=== PATIENT | female | born 1985 | race Caucasian/White ===

== ENCOUNTER 2018-05-21 17:06 | Inpatient (IN) | payer OTHER ==
[2018-05-21 19:39] LABS: CKMB 10.5 ng/mL (0-6.6)
--- NOTE | 2018-05-21 20:32 | ULT ---
TRANSABDOMINAL PELVIC ULTRASOUND: 05/21/18 PROVIDED CLINICAL HISTORY: Left lower quadrant pain. FINDINGS: Evaluation is limited by patient body habitus. The uterus measures approximately 12.7 x 3.0 x 6.2 cm. The myometrium and endometrium are not sufficiently visualized for comment. Neither ovary is seen. M inimal free intraperitoneal fluid may be present. Bladder appears sonographically normal. IMPRESSION: Limited study. POS: CHAN
[2018-05-21] MEDS ORDERED: Ondansetron PF 4 MG/2 ML Vial IVP PRN ×2 (21:06→21:29)
[2018-05-21] MEDS ORDERED: Ondansetron ODT 4 MG TAB SL PRN (21:06)
[2018-05-21] MEDS ORDERED: Acetaminophen 325 MG TAB PO PRN (21:06)
[2018-05-21] MEDS ORDERED: Ondansetron ODT 4 MG TAB PO PRN (21:29)
[2018-05-21] MEDS ORDERED: hydrALAZINE 20 MG/ML VIAL SLOW IVP PRN (21:29)
[2018-05-21] MEDS ORDERED: Famotidine 20 MG TAB PO SCH ×2 (21:29→21:45)
--- NOTE | 2018-05-21 21:40 | NM ---
VQ SCAN 05/21/18 PROVIDED CLINICAL HISTORY: Pain. FINDINGS: 8 millicuries Xenon 133 inhalational. 6 millicuries technetium 99m labeled MAA, IV. FINDINGS: There is normal distribution of radiotracer throughout both lungs on both the ventilation and perfusi on scans. Prominent central thoracic photopenia related to marked cardiomegaly. IMPRESSION: No scintigraphic evidence for pulmonary embolus. POS: GENIH
[2018-05-21] MEDS ORDERED: Enoxaparin Sodium 30 MG/0.3 ML SYRINGE SC SCH (21:45)
[2018-05-21] MEDS ORDERED: Aspirin 325 mg Enteric Coated Tablet PO SCH (21:45)
[2018-05-21] MEDS: Acetaminophen 500 MG TAB PO PRN (21:53)
[2018-05-21 22:20] LABS: Lactic Acid 1.7 mmol/L (0.5-2.2)
[2018-05-21 22:31] LABS: Critical Call Chem Troponin I RESULT DECREASING; Troponin I 14.503 ng/mL (< 0.028)
[2018-05-22] MEDS: Acetaminophen 500 MG TAB PO PRN ×3 (02:38→19:45)
--- NOTE | 2018-05-22 03:00 | HP ---
PRIMARY CARE PROVIDER: CHIEF COMPLAINT: Chest and abdominal pain and shortness of breath. HISTORY OF PRESENT ILLNESS: This is a 32-year-old female, who presented to [facility] Emergency Department complaining of abdominal and chest pain as well as shortness of breath over the last week. The patient denied any specific documented fever, chills, or trauma. The patient did state she had associated swelling of her lower extremities that appeared symmetrical with worsening shortness of breath with activity or ambulation. The patient denies any history of cardiac or lung problems and states she has had no history of asthma. The patient denied any recent immunizations or travel history. The patient denies taking any specific home medications and states her only surgery was a section approximately 4 years prior to this evaluation. The patient denies taking any hormonal replacement therapy or control pills. The patient initially noted pain in the left lower quadrant of her abdomen which is cramping, radiating to the flank region, intermittently severe, requiring her to bend forward to help relieve her symptoms. The patient admits to several bowel movements in the last several days, which were firm, but not diarrhea. The patient denied any hematemesis, hematochezia, or change to her diet. The patient also admitted to increased shortness of breath and chest pain in the last week intermittently, initially becoming more frequent and recurrent in the last 24 hours. The patient denies any family members with similar symptoms and states her underwent recent gallbladder surgery. She also relates she has been under stress related to her surgery in the last week. In the emergency room, the patient underwent extensive evaluation after screening. Laboratory data reveal a multitude of abnormalities including troponin I of 18 with a TSH of 13.26 and elevated BNP of 3071. The patient received multiple medications including Lovenox, aspirin, Lasix, Synthroid, nitroglycerin paste, Zofran, and lisinopril. The patient also received labetalol IV push after tachycardia was noted on telemetry monitoring. The patient states her abdominal pain has improved, but still remain short of breath. PAST MEDICAL HISTORY: Ovarian cysts. PAST SURGICAL HISTORY: Status post section in 2013. CURRENT MEDICATIONS: Reviewed and negative. ALLERGIES: CODEINE AND LATEX. FAMILY HISTORY: Mother with history of CHF. SOCIAL HISTORY: The patient is , accompanied by her and son in the hospital. No current alcohol, tobacco, or illicit drug use. Functional of all activities of daily living. REVIEW OF SYSTEMS: CONSTITUTIONAL: Negative for weight loss or gain, ability to conduct usual activities. SKIN: Negative for rash, itching. EYES: Negative for double vision, pain. ENT/MOUTH: Negative for nose bleeding, neck stiffness, pain, tenderness. CARDIOVASCULAR: Negative for palpitations, dyspnea on exertion, orthopnea. RESPIRATORY: Negative for shortness of breath, wheezing, cough, hemoptysis, fever or night sweats. GASTROINTESTINAL: Negative for poor appetite, abdominal pain, heartburn, nausea, vomiting, constipation, or diarrhea. GENITOURINARY: Negative for urgency, frequency, dysuria, nocturia. MUSCULOSKELETAL: Negative for pain, swelling. NEUROLOGIC/PSYCHIATRIC: Negative for anxiety, depression. ALLERGY/IMMUNOLOGIC: Negative for skin rash, bleeding tendency. Otherwise negative except as stated per HPI. PHYSICAL EXAMINATION: VITAL SIGNS: On admission; blood pressure 191/146, pulse 121, respiratory rate 22, temperature 97.9 degrees Fahrenheit, O2 saturation 96% on 2 L/min by nasal cannula. GENERAL APPEARANCE: This is a 32-year-old female, alert and oriented x3, pleasant, in avnh-kd-aeurtihs distress. HEENT: Pupils are equal, round, and reactive to light and accommodation. Extraocular muscles are intact. No scleral icterus. No conjunctival injection. Nares patent. OP is clear. Teeth in fair repair. NECK: Supple. No cervical adenopathy. No thyromegaly. No carotid bruits. No JVD appreciated. Cervical spinal with full active and passive range of motion. No meningeal signs appreciated. CHEST: Lungs with diminished breath sounds in the bases bilaterally. Occasional coarse breath sounds noted. CARDIOVASCULAR: S1 and S2 with distant heart sounds. No murmur, rub, or gallop appreciated. ABDOMEN: Obese with landmarks difficult to palpate due to patient's body habitus. No rebound or guarding noted. No CVA tenderness appreciated. EXTREMITIES: Warm and dry with fair turgor. Pitting edema to the proximal shins bilaterally. Pulses are palpable distally at the dorsalis pedis, posterior tibial, and popliteal arteries bilaterally. Capillary refill less than 2 seconds. NEUROLOGIC: Cranial nerves 2 through 12 are grossly intact. No focal or lateralizing signs appreciated. PERTINENT LAB AND X-RAY FINDINGS: Sodium 140, potassium 3.6, chloride 100, CO2 of 26, BUN 19, creatinine 1.03, estimated GFR 61, glucose 125, calcium 9.0, total bilirubin 1.5, AST 64, ALT of 46, alkaline phosphatase 56. Troponin I ranged between 15.5 to 18.1. BNP 3071. Lipase 124. TSH 13.25. CBC showed white blood cell count of 10.1, hemoglobin 12, hematocrit 38, MCV 73, platelet count 339 with 76% neutrophils. Urinalysis showed positive protein, trace blood, small bilirubin, 4 to [address] of the abdomen and pelvis showed mild ascites in the perihepatic region, calcified density anterior to the uterus noted, pericardial effusion noted. Pelvic ultrasound dated 05/21/2018, showed indistinct ovaries, limited study. Portable chest x-ray dated 05/21/2018, showed marked cardiomegaly with vascular prominence. EKG dated 05/21/2018, by my interpretation shows sinus tachycardia with heart rates in the 110s. Attenuated R-waves noted in the precordial leads. Left axis deviation. No acute ST-T wave changes appreciated. ASSESSMENT AND PLAN: 1. Acute dyspnea, etiology unclear. Concern for pulmonary embolus as the patient has not been ruled out completely. We will obtain V/Q scan as the patient underwent CT imaging of the abdomen and pelvis with contrast in less than 24 hours. Continue Lovenox 130 mg subcutaneously q.12 hours, pending complete rule out. Check lower extremity venous Doppler studies to rule out deep vein thrombosis. 2. Chest pain, multifactorial including potential for non-ST elevation myocardial infarction given patient's elevated troponin I. We will continue to trend troponin I. Continue aspirin 325 mg daily. Suspect elevated troponin I secondary to other causes than myocardial infarction. Obtain 2D transthoracic echocardiogram. Consult Cardiology Service in the a.m. 3. Abdominal pain, etiology unclear. We will continue serial monitoring. Repeat complete metabolic profile in the a.m. 4. Pericardial effusion, suspect secondary to third spacing. Lasix 20 mg IV q.12 hours. Check formal 2D transthoracic echocardiogram. 5. Elevated troponin I, question of non-ST elevation myocardial infarction versus other process. See #1 above. 6. Hyperglycemia. Check A1c level in the a.m. 7. Prophylaxis. Hold sequential compression devices due to lower extremity edema. Pepcid 20 mg p.o. b.i.d.. CODE STATUS: Full. Surrogate medical decision maker is the patient's spouse. Job ID: [id number]
[2018-05-22 06:25] LABS: Hemoglobin A1c 5.8 % (4.0-6.0)
[2018-05-22 06:33] LABS: Eosinophils 1 % (0-10); Hemoglobin 11.3 g/dL (12.0-16.0); Lymphocytes 29 % (21-51); MDiff Complete? YES; Mean Corpuscular HGB CONC 31.1 g/dL (32.0-36.0); Mean Corpuscular Hemoglobin 24.2 pg (27.0-31.0); Mean Corpuscular Volume 77.8 fL (78.0-98.0); Mean Platelet Volume 7.8 fL (7.4-10.4); Monocytes 2 % (0-10); Neutrophil 68 % (42-75); Platelet Count 281 thou/uL (130-400); RBC Distribution Width 15.3 % (11.5-14.5); Red Blood Cell (RBC) Count 4.66 mill/uL (4.20-5.40); White Blood Cell (WBC) Count 8.9 thou/uL (4.8-10.8)
[2018-05-22 06:42] LABS: ALT (SGPT) 42 U/L (8-55); AST (SGOT) 63 U/L (5-34); Albumin 3.1 g/dL (3.5-5.0); Alkaline Phosphatase 50 U/L (40-150); Anion Gap 14 mmol/L (10-20); BUN (Urea Nitrogen) 22 mg/dL (7.0-18.7); Bilirubin, Total 1.4 mg/dL (0.2-1.2); Calc. Creatinine Clearance 209 mL/min (70-130); Calcium 8.8 mg/dL (7.8-10.44); Carbon Dioxide 27 mmol/L (22-29); Cardiac Risk 6.2 (Less than 4.5); Chloride 101 mmol/L (98-107); Cholesterol 112 mg/dl (< 200 Desired); Estimated GFR-MDRD 67; Globulin 3.2 g/dL (2.4-3.5); Glucose 81 mg/dL (70-105); HDL Cholesterol 18 mg/dL (>60 Neg Risk); LDL Cholesterol, Calculated 79 mg/dL; Potassium 3.3 mmol/L (3.5-5.1); Protein, Total 6.3 g/dL (6.0-8.3); Sodium 139 mmol/L (136-145); Triglycerides 73 mg/dL (Less than 150)
[2018-05-22] MEDS ORDERED: Enoxaparin Sodium 100 MG/ML SYRINGE SC SCH ×2 (07:00→21:00)
[2018-05-22] MEDS ORDERED: Enoxaparin Sodium 60 MG/0.6 ML SYRINGE SC SCH ×2 (07:00→21:00)
--- NOTE | 2018-05-22 07:58 | ULT ---
BILATERAL LOWER EXTREMITY VENOUS DOPPLER ULTRASOUND: Date: 05/21/18 HISTORY: Bilateral lower extremity pain and edema. TECHNIQUE: Newton scale ultrasound with color flow and spectral Doppler imaging of the deep venous systems of the lower extremities was performed bilaterally. FINDINGS: There is good flow, compression, and augmentation noted in the common femoral, femoral, deep femoral, popliteal, posterior tibial, and greater saphenous veins on either side. IMPRESSION: No evidence of deep venous thrombosis in either lower extremity. POS: OFF
[2018-05-22] MEDS: Famotidine 20 MG TAB PO SCH ×2 (08:51→19:41)
[2018-05-22] MEDS ORDERED: Aspirin 325 mg Enteric Coated Tablet PO SCH (09:00)
--- NOTE | 2018-05-22 15:42 | PDOC.PN ---
- Subjective Encounter Start Date: 05/22/18 Encounter Start Time: 15:35 Subjective: f/u for dyspnea, chest and abd pain with markedly elevated troponin I -: and edema consistent with CHF. - Objective Resuscitation Status - Order Detail: 05/21/18 19:13 Resuscitation Status Routine Resuscitation Status: FULL: Full Resuscitation MAR Reviewed: Yes Vital Signs & Weight: Vital Signs (12 hours) Temp Pulse Resp BP Pulse Ox 05/22/18 12:11 97.7 F 89 18 166/102 H 98 05/22/18 08:45 86 20 155/101 H 98 05/22/18 08:00 98 Weight Admit Weight 353 lb 11.2 oz Weight 353 lb 11.2 oz Result Diagrams: 05/22/18 06:01 05/22/18 06:01 Additional Labs: Laboratory Tests 05/21/18 05/21/18 05/21/18 14:26 14:26 14:26 Potassium 3.6 AST 64 H ALT 46 Troponin I 18.121 H* B-Natriuretic Peptide 3070.9 H Triglycerides Cholesterol LDL Cholesterol, Calc HDL Cholesterol Free T4 05/21/18 05/21/18 05/22/18 18:34 21:44 06:01 Potassium AST 63 H ALT 42 Troponin I 15.458 H* 14.503 H* B-Natriuretic Peptide Triglycerides 73 Cholesterol 112 LDL Cholesterol, Calc 79 HDL Cholesterol 18 Free T4 05/22/18 05/22/18 06:01 06:01 Potassium AST ALT Troponin I B-Natriuretic Peptide 2827.2 H Triglycerides Cholesterol LDL Cholesterol, Calc HDL Cholesterol Free T4 0.82 Radiology Reviewed by me: Yes (2D echo - EF 15%, ? bicuspid AV, mild pericardial effusion, severe TR) EKG Reviewed by me: Yes (Tele - SR) Phys Exam - Physical Examination Constitutional: NAD HEENT: PERRLA, sclera anicteric, oral pharynx no lesions Neck: no nodes, no JVD, supple, full ROM basilar crackles Respiratory: no wheezing S1, S2 Cardiovascular: RRR, no significant murmur, no rub, gallop Gastrointestinal: soft, non-tender, no distention, positive bowel sounds Musculoskeletal: pulses present, edema present Neurological: normal sensation, moves all 4 limbs Psychiatric: A&O x 3 Skin: normal turgor, cap refill <2 seconds Dx/Plan (1) Acute respiratory failure with hypoxia Code(s): J96.01 - ACUTE RESPIRATORY FAILURE WITH HYPOXIA Status: Acute Comment: Secondary to #1, continue O2 supplementation, Diuresis (2) Systolic CHF Code(s): I50.20 - UNSPECIFIED SYSTOLIC (CONGESTIVE) HEART FAILURE Status: Acute Comment: EF 15%, ? etiology, ? viral cardiomyopathy, ischemic, Lasix 40mg IV BID, likely will need cardiac cath to further define anatomy and r/o ischemic etiology (3) Dyspnea Code(s): R06.00 - DYSPNEA, UNSPECIFIED Status: Acute Comment: Likely due to pulm edema in context of #1, see above (4) HTN (hypertension) Code(s): I10 - ESSENTIAL (PRIMARY) HYPERTENSION Status: Chronic Qualifiers: Hypertension type: essential hypertension Qualified Code(s): I10 - Essential (primary) hypertension Comment: Start Metoprolol 25mg BID, serial monitoring, Hydralazine prn - Plan out of bed/ambulate, DVT proph w/SCDs Continue supportive mgmt -: Lasix 40mg IV BID first dose now -: ASA 81mg daily -: Appreciate Cardiology assistance -: Left heart cath likely in 72h * AM lab: BMP, H/H
[2018-05-22] MEDS ORDERED: Potassium Chloride 20 MEQ TAB PO SCH (16:00)
[2018-05-22] MEDS ORDERED: Furosemide 40 MG/4 ML VIAL SLOW IVP SCH (16:15)
[2018-05-22] MEDS: Carvedilol 3.125 MG TAB PO SCH (17:04)
[2018-05-22] MEDS: Potassium Chloride 20 MEQ TAB PO SCH (18:45)
[2018-05-22] MEDS: Lisinopril 5 MG TAB PO SCH (19:41)
[2018-05-22] MEDS: Melatonin 3 MG TAB PO PRN (19:42)
[2018-05-22] MEDS ORDERED: Metoprolol Tartrate 25 MG TAB PO SCH (21:00)
--- NOTE | 2018-05-22 21:51 | CON ---
DATE OF CONSULTATION: HISTORY OF PRESENT ILLNESS: Earline Love is a 32-year-old white female without previous cardiac problems. She approximately 1 month ago, began to notice increasing exertional dyspnea. This seemed to start after she had an upper respiratory infection. She developed a cough with that and the cough never seemed to go away. Over the last 2 weeks, she has had significant worsening of her dyspnea. She has developed lower extremity edema and would have episodes of PND, and have to get up and sleep in a chair. Ultimately, she came to the emergency room for complaints of mid abdominal pain, slightly worse on the left than the right side. At the present time, she states her breathing is doing well. Also, she does not seem to have any further abdominal pain. She denies ever having any chest, arm, neck, or jaw discomfort. She denies any history of rheumatic fever or history of heart murmur. PAST MEDICAL HISTORY: Hypertension, morbid obesity, ovarian cyst. OPERATIONS: in 2013. MEDICATIONS: Multivitamin. ALLERGIES: CODEINE AND LATEX. SOCIAL HISTORY: She smoked one pack per day, but stopped 4 years ago. She does not drink alcohol. FAMILY HISTORY: Negative for coronary artery disease. REVIEW OF SYSTEMS: A 10-point review of systems is otherwise unremarkable. PHYSICAL EXAMINATION: VITAL SIGNS: Blood pressure 166/102, pulse of 89. HEENT: PERRL. NECK: Supple. CHEST: Clear. CARDIAC: S1 and S2 normal without any S3 or S4. There is a 1/6 systolic ejection murmur in the aortic area. ABDOMEN: Normal bowel sounds without tenderness or organomegaly. ABDOMEN: Obese. EXTREMITIES: Revealed 2+ pretibial edema. NEUROLOGIC: Grossly intact. SKIN: Warm and dry. LABORATORY DATA: EKG reveals sinus tachycardia with incomplete left bundle branch block. Hemoglobin 9.3, hematocrit 36.3, white count 8900, platelets 181,000. Sodium 139, potassium 3.3, chloride 101, carbon dioxide 27, BUN 22, creatinine 0.96, troponin I 15.458, MB 10.5, BNP 2827.2. TSH 13.2594, however, free T4 is normal at 0.82. Cholesterol 112, triglycerides 73, HDL 18, LDL 79. Echocardiogram revealed this study to be technically difficult. There was severe left ventricular dilatation with severe left ventricular dysfunction with an ejection fraction of 15% to 20%. There was moderate enlargement of the right ventricle, left atrium, and right atrium. There is moderate mitral regurgitation, moderate aortic stenosis, and moderate aortic insufficiency. The aortic valve appeared to be bicuspid. There was dnnrjibw-it-ssgrld tricuspid regurgitation, mild pulmonic regurgitation. Lower extremity Doppler revealed no evidence of deep venous thrombosis. She underwent V/Q scanning after she had an abdominal CT with contrast. This revealed no evidence of pulmonary embolism. The abdominal CT revealed cardiomegaly with pericardial effusion, ascites. IMPRESSION: 1. Severe left ventricular dysfunction of uncertain etiology with ejection fraction of 15% to 20%. 2. Possible bicuspid aortic valve. On her echo, the valve looked as if it was bicuspid. She does have a gradient, as well as moderate aortic insufficiency. It would be somewhat unusual, however, that she would go through life without any one ever noticing a murmur, although granted at the present time, she does not have a significant murmur. 3. Probable non-ST elevation myocardial infarction. 4. Former smoker. 5. Diet-controlled diabetes. 6. History of hypertension. 7. Ascites. PLAN: The patient will continue to be diuresed. Consideration will be given for cardiac catheterization to define the severity of her aortic valvular disease. Job ID: [id number]
[2018-05-23 05:37] LABS: Anion Gap 12 mmol/L (10-20); BUN (Urea Nitrogen) 22 mg/dL (7.0-18.7); Calc. Creatinine Clearance 216 mL/min (70-130); Calcium 8.6 mg/dL (7.8-10.44); Carbon Dioxide 30 mmol/L (22-29); Chloride 99 mmol/L (98-107); Estimated GFR-MDRD 69; Glucose 79 mg/dL (70-105); Potassium 3.8 mmol/L (3.5-5.1); Sodium 137 mmol/L (136-145)
[2018-05-23] MEDS: Furosemide 40 MG/4 ML VIAL SLOW IVP SCH ×2 (05:46→14:09)
--- NOTE | 2018-05-23 08:00 | PDOC.PN ---
- Subjective Encounter Start Date: 05/23/18 Encounter Start Time: 08:00 Subjective: feels anxious but no worseninng of SOB.leg swelling better -: no Chest pain - Objective Resuscitation Status - Order Detail: 05/21/18 19:13 Resuscitation Status Routine Resuscitation Status: FULL: Full Resuscitation MAR Reviewed: Yes Vital Signs & Weight: Vital Signs (12 hours) Temp Pulse Resp BP BP Pulse Ox 05/23/18 07:28 98.1 F 74 18 126/82 99 05/23/18 05:21 94 L 05/23/18 04:00 97.9 F 86 18 152/102 H 95 Weight Admit Weight 353 lb 11.2 oz Weight 357 lb 8 oz I&O: 05/22/18 05/23/18 05/24/18 06:59 06:59 06:59 Intake Total 700 Output Total 600 Balance 100 Result Diagrams: 05/22/18 06:01 05/23/18 04:36 Additional Labs: Laboratory Tests 05/21/18 05/21/18 05/21/18 14:26 14:26 18:34 Troponin I 18.121 H* 15.458 H* B-Natriuretic Peptide 3070.9 H 05/21/18 05/22/18 21:44 06:01 Troponin I 14.503 H* B-Natriuretic Peptide 2827.2 H Phys Exam - Physical Examination Constitutional: NAD anxious HEENT: PERRLA, moist MMs, sclera anicteric, oral pharynx no lesions Neck: no nodes, no JVD, supple, full ROM Respiratory: no wheezing, no rales, no rhonchi, clear to auscultation bilateral Cardiovascular: RRR, no significant murmur Gastrointestinal: soft, non-tender, no distention, positive bowel sounds Musculoskeletal: pulses present, edema present Neurological: non-focal, normal sensation, moves all 4 limbs Psychiatric: normal affect, A&O x 3 Skin: no rash Dx/Plan (1) Systolic CHF Code(s): I50.20 - UNSPECIFIED SYSTOLIC (CONGESTIVE) HEART FAILURE Status: Acute Comment: EF 15%, ? etiology, ? viral cardiomyopathy, ischemic, Lasix 40mg IV BID, likely will need cardiac cath to further define anatomy and r/o ischemic etiology (2) Dyspnea Code(s): R06.00 - DYSPNEA, UNSPECIFIED Status: Acute Comment: Likely due to pulm edema in context of #1, see above (3) Acute respiratory failure with hypoxia Code(s): J96.01 - ACUTE RESPIRATORY FAILURE WITH HYPOXIA Status: Acute Comment: Secondary to #1, continue O2 supplementation, Diuresis (4) Cardiomyopathy Code(s): I42.9 - CARDIOMYOPATHY, UNSPECIFIED Status: Acute Comment: Cont ASA ,BB,FELICE-I.Add aldactone (5) HTN (hypertension) Code(s): I10 - ESSENTIAL (PRIMARY) HYPERTENSION Status: Chronic Qualifiers: Hypertension type: essential hypertension Qualified Code(s): I10 - Essential (primary) hypertension Comment: Start Metoprolol 25mg BID, serial monitoring, Hydralazine prn (6) Hypothyroid Code(s): E03.9 - HYPOTHYROIDISM, UNSPECIFIED Status: Acute - Plan DVT proph w/SCDs HD stable.Cath per cardiology.+FH of CAD in mother -: ? etiology w multiple valvular involvement.? congenital/Viral -: monitor closely -: add xanax prn. -: start levothyroxine given high TSH despite NL T4 given severe CMP * . Review of Systems - Review of Systems Constitutional: weakness. negative: fever, chills, sweats, malaise, other ENT: negative: Ear Pain, Ear Discharge, Nose Pain, Nose Discharge, Nose Congestion, Mouth Pain, Mouth Swelling, Throat Pain, Throat Swelling, Other Respiratory: SOB with Excertion. negative: Cough, Dry, Shortness of Breath, Hemoptysis, Pleuritic Pain, Sputum, Wheezing Cardiovascular: negative: chest pain, palpitations, orthopnea, paroxysmal nocturnal dyspnea, edema, light headedness, other Gastrointestinal: negative: Nausea, Vomiting, Abdominal Pain, Diarrhea, Constipation, Melena, Hematochezia, Other Genitourinary: negative: Dysuria, Frequency, Incontinence, Hematuria, Retention , Other Musculoskeletal: negative: Neck Pain, Shoulder Pain, Arm Pain, Back Pain, Hand Pain, Leg Pain, Foot Pain, Other Neurological: negative: Weakness, Numbness, Incoordination, Change in Speech, Confusion, Seizures, Other - Medications/Allergies Allergies/Adverse Reactions: Allergies Allergy/AdvReac Type Severity Reaction Status Date / Time codeine Allergy Verified 05/22/18 05:19 latex Allergy Verified 05/22/18 05:19 Medications: Current Medications Acetaminophen (Tylenol) 1,000 mg PO Q6H PRN PRN Reason: Mild Pain (1-3) Last Admin: 05/22/18 19:45 Dose: 1,000 mg Aspirin (Ecotrin) 81 mg PO DAILY [facility] Last Admin: 05/22/18 17:04 Dose: 3.125 mg Famotidine (Pepcid) 20 mg PO BID [facility] Last Admin: 05/22/18 19:41 Dose: 20 mg Furosemide (Lasix) 40 mg SLOW IVP 0600,1400 [facility] Last Admin: 05/23/18 05:46 Dose: 40 mg Hydralazine HCl (Apresoline) 20 mg SLOW IVP Q4H PRN PRN Reason: SBP Greater Than 180 Lisinopril (Zestril) 2.5 mg PO BID [facility] Last Admin: 05/22/18 19:41 Dose: 2.5 mg Melatonin (Melatonin) 6 mg PO HS PRN PRN Reason: Insomnia Last Admin: 05/22/18 19:42 Dose: 6 mg Ondansetron HCl (Zofran Odt) 4 mg PO Q6H PRN PRN Reason: Nausea/Vomiting Ondansetron HCl (Zofran) 4 mg IVP Q6H PRN PRN Reason: Nausea/Vomiting Potassium Chloride ([facility]Dur) [facility] Last Admin: 05/22/18 18:45 Dose: 40 meq
[2018-05-23] MEDS: Potassium Chloride 20 MEQ TAB PO SCH ×2 (08:28→16:37)
[2018-05-23] MEDS: Carvedilol 3.125 MG TAB PO SCH ×2 (08:28→16:37)
[2018-05-23] MEDS: Aspirin 81 mg Enteric Coated Tablet PO SCH (08:28)
[2018-05-23] MEDS: Famotidine 20 MG TAB PO SCH ×2 (08:28→19:48)
[2018-05-23] MEDS: Lisinopril 5 MG TAB PO SCH ×2 (08:29→19:48)
[2018-05-23] MEDS: Acetaminophen 500 MG TAB PO PRN (09:27)
[2018-05-23] MEDS ORDERED: ALPRAZolam 0.25 MG TAB PO PRN (11:29)
[2018-05-24] MEDS: Levothyroxine Sodium 75 MCG TAB PO SCH (06:13)
[2018-05-24] MEDS: Furosemide 40 MG/4 ML VIAL SLOW IVP SCH ×2 (06:13→13:01)
[2018-05-24 07:23] LABS: Hemoglobin 11.5 g/dL (12.0-16.0); Platelet Count 280 thou/uL (130-400)
[2018-05-24] MEDS: Potassium Chloride 20 MEQ TAB PO SCH ×2 (08:30→16:10)
[2018-05-24] MEDS: Spironolactone 25 MG TAB PO SCH (08:30)
[2018-05-24] MEDS: Acetaminophen 500 MG TAB PO PRN (08:30)
[2018-05-24] MEDS: Aspirin 81 mg Enteric Coated Tablet PO SCH (08:30)
[2018-05-24] MEDS: Carvedilol 3.125 MG TAB PO SCH (08:31)
[2018-05-24] MEDS: Lisinopril 5 MG TAB PO SCH ×2 (08:31→20:26)
[2018-05-24] MEDS: Famotidine 20 MG TAB PO SCH ×2 (08:31→20:26)
[2018-05-24] MEDS ORDERED: traZODone HCl 50 MG TAB PO PRN (10:22)
--- NOTE | 2018-05-24 10:24 | PDOC.PN ---
- Subjective Encounter Start Date: 05/24/18 Encounter Start Time: 10:23 Subjective: reports agitation & somnolence w bhavani she got last night -: no CP/SOB/leg swelling - Objective Resuscitation Status - Order Detail: 05/21/18 19:13 Resuscitation Status Routine Resuscitation Status: FULL: Full Resuscitation MAR Reviewed: Yes Vital Signs & Weight: Vital Signs (12 hours) Temp Pulse Resp BP BP Pulse Ox 05/24/18 08:01 98.4 F 74 18 142/98 H 99 05/24/18 04:09 98 F 71 18 120/80 100 Weight Admit Weight 353 lb 11.2 oz Weight 358 lb 8 oz I&O: 05/23/18 05/24/18 05/25/18 06:59 06:59 06:59 Intake Total 700 1360 Output Total 600 2650 Balance 100 -1290 Result Diagrams: 05/24/18 07:02 05/24/18 07:02 Phys Exam - Physical Examination Constitutional: NAD anxious appearing HEENT: PERRLA, moist MMs, sclera anicteric, oral pharynx no lesions Neck: no nodes, no JVD, supple, full ROM Respiratory: no wheezing, no rales, no rhonchi, wheezing present, clear to auscultation bilateral Cardiovascular: RRR, no significant murmur, no rub Gastrointestinal: soft, non-tender, no distention, positive bowel sounds Musculoskeletal: no edema, pulses present Neurological: non-focal, normal sensation, moves all 4 limbs Psychiatric: A&O x 3 Skin: no rash Dx/Plan (1) Systolic CHF Code(s): I50.20 - UNSPECIFIED SYSTOLIC (CONGESTIVE) HEART FAILURE Status: Acute Qualifiers: Heart failure chronicity: acute Qualified Code(s): I50.21 - Acute systolic (congestive) heart failure Comment: EF 15%, ? etiology, ? viral cardiomyopathy, ischemic, Lasix 40mg IV BID , likely will need cardiac cath to further define anatomy and r/o ischemic etiology (2) Dyspnea Code(s): R06.00 - DYSPNEA, UNSPECIFIED Status: Acute Comment: Likely due to pulm edema in context of #1, see above (3) Acute respiratory failure with hypoxia Code(s): J96.01 - ACUTE RESPIRATORY FAILURE WITH HYPOXIA Status: Acute Comment: Secondary to #1, continue O2 supplementation, Diuresis (4) Cardiomyopathy Code(s): I42.9 - CARDIOMYOPATHY, UNSPECIFIED Status: Acute Comment: Cont ASA ,BB,FLEICE-I.Add aldactone (5) HTN (hypertension) Code(s): I10 - ESSENTIAL (PRIMARY) HYPERTENSION Status: Chronic Qualifiers: Hypertension type: essential hypertension Qualified Code(s): I10 - Essential (primary) hypertension Comment: Start Metoprolol 25mg BID, serial monitoring, Hydralazine prn (6) Hypothyroid Code(s): E03.9 - HYPOTHYROIDISM, UNSPECIFIED Status: Acute - Plan plan discussed w/ family, out of bed/ambulate, DVT proph w/SCDs Cardiac Cath tomorrow.HD stable.cont ASA,BB,FELICE-I,aldactone -: cont to diurese.good UO. -: Cont levothyroxine -: DC xanax.PRN hs trazodone for sleep -: am labs * . Review of Systems - Review of Systems Constitutional: negative: fever, chills, sweats, weakness, malaise, other Respiratory: negative: Cough, Dry, Shortness of Breath, Hemoptysis, SOB with Excertion, Pleuritic Pain, Sputum, Wheezing Cardiovascular: negative: chest pain, palpitations, orthopnea, paroxysmal nocturnal dyspnea, edema, light headedness, other Gastrointestinal: negative: Nausea, Vomiting, Abdominal Pain, Diarrhea, Constipation, Melena, Hematochezia, Other Genitourinary: negative: Dysuria, Frequency, Incontinence, Hematuria, Retention , Other Musculoskeletal: negative: Neck Pain, Shoulder Pain, Arm Pain, Back Pain, Hand Pain, Leg Pain, Foot Pain, Other Skin: negative: Rash, Lesions, Jean, Bruising, Other Neurological: Confusion - Medications/Allergies Allergies/Adverse Reactions: Allergies Allergy/AdvReac Type Severity Reaction Status Date / Time codeine Allergy Verified 05/22/18 05:19 latex Allergy Verified 05/22/18 05:19 Medications: Current Medications Acetaminophen (Tylenol) 1,000 mg PO Q6H PRN PRN Reason: Mild Pain (1-3) Last Admin: 05/24/18 08:30 Dose: 1,000 mg Aspirin (Ecotrin) 81 mg PO DAILY [facility] Last Admin: 05/24/18 08:30 Dose: 81 mg Carvedilol (Coreg) 3.125 mg PO BID-[facility] Last Admin: 05/24/18 08:31 Dose: 3.125 mg Famotidine (Pepcid) 20 mg PO BID [facility] Last Admin: 05/24/18 08:31 Dose: 20 mg Furosemide (Lasix) 40 mg SLOW IVP 0600,1400 [facility] Last Admin: 05/24/18 06:13 Dose: 40 mg Hydralazine HCl (Apresoline) 20 mg SLOW IVP Q4H PRN PRN Reason: SBP Greater Than 180 Levothyroxine Sodium (Synthroid) 75 mcg PO 0600 [facility] Last Admin: 05/24/18 06:13 Dose: 75 mcg Lisinopril (Zestril) 2.5 mg PO BID [facility] Last Admin: 05/24/18 08:31 Dose: 2.5 mg Melatonin (Melatonin) 6 mg PO HS PRN PRN Reason: Insomnia Last Admin: 05/22/18 19:42 Dose: 6 mg Ondansetron HCl (Zofran Odt) 4 mg PO Q6H PRN PRN Reason: Nausea/Vomiting Ondansetron HCl (Zofran) 4 mg IVP Q6H PRN PRN Reason: Nausea/Vomiting Potassium Chloride (K-Dur) 40 meq PO BID-[facility] Last Admin: 05/24/18 08:30 Dose: 40 meq Sodium Chloride (Flush - Normal Saline) 10 ml IVF Q12HR [facility] Last Admin: 05/24/18 08:31 Dose: 10 ml Sodium Chloride (Flush - Normal Saline) 10 ml IVF PRN PRN PRN Reason: Saline Flush Spironolactone (Aldactone) 12.5 mg PO QAM-[facility] Last Admin: 05/24/18 08:30 Dose: 12.5 mg Trazodone HCl (Desyrel) 50 mg PO HS PRN PRN Reason: Insomnia
[2018-05-24] MEDS ORDERED: Communication Order-Pharmacy FS SCH (13:45)
[2018-05-24] MEDS: Carvedilol 6.25 MG TAB PO SCH (16:10)
[2018-05-24] MEDS: Melatonin 3 MG TAB PO PRN (20:35)
[2018-05-25] MEDS: Levothyroxine Sodium 75 MCG TAB PO SCH (05:24)
[2018-05-25] MEDS: Lisinopril 5 MG TAB PO SCH (05:25)
[2018-05-25] MEDS: Carvedilol 6.25 MG TAB PO SCH ×2 (05:25→16:22)
[2018-05-25] MEDS: Spironolactone 25 MG TAB PO SCH (05:25)
[2018-05-25] MEDS: Aspirin 81 mg Enteric Coated Tablet PO SCH (05:26)
[2018-05-25] MEDS: Famotidine 20 MG TAB PO SCH ×2 (05:26→20:15)
[2018-05-25 06:00] LABS: Anion Gap 14 mmol/L (10-20); BUN (Urea Nitrogen) 29 mg/dL (7.0-18.7); Calc. Creatinine Clearance 196 mL/min (70-130); Calcium 9.2 mg/dL (7.8-10.44); Carbon Dioxide 29 mmol/L (22-29); Chloride 100 mmol/L (98-107); Estimated GFR-MDRD 61; Glucose 96 mg/dL (70-105); Potassium 4.5 mmol/L (3.5-5.1); Sodium 138 mmol/L (136-145)
[2018-05-25] MEDS ORDERED: Sodium Chloride 0.9% 1,000 ML IV SCH ×2 (06:00→13:41)
[2018-05-25] MEDS: Furosemide 40 MG/4 ML VIAL SLOW IVP SCH ×2 (06:35→14:00)
[2018-05-25] MEDS: Potassium Chloride 20 MEQ TAB PO SCH ×2 (07:36→16:22)
[2018-05-25] MEDS: Acetaminophen 500 MG TAB PO PRN (08:53)
[2018-05-25] MEDS ORDERED: Heparin 10,000 UNITS/1 ML VIAL ONE (09:06)
--- NOTE | 2018-05-25 11:11 | PDOC.PN ---
- Subjective Encounter Start Date: 05/25/18 Encounter Start Time: 11:10 Subjective: HAD HIGH ANXIETY LAST NIGHT AND SLEPT IN CHAIR -: NO cp/sob/PALPITATIONS - Objective Resuscitation Status - Order Detail: 05/21/18 19:13 Resuscitation Status Routine Resuscitation Status: FULL: Full Resuscitation MAR Reviewed: Yes Vital Signs & Weight: Vital Signs (12 hours) Temp Pulse Resp BP BP BP Pulse Ox 05/25/18 08:25 98.2 F 73 18 162/106 H 98 05/25/18 05:25 73 130/96 H 05/25/18 04:00 97.5 F L 80 14 130/96 H 99 Weight Admit Weight 353 lb 11.2 oz Weight 358 lb 8 oz I&O: 05/24/18 05/25/18 05/26/18 06:59 06:59 06:59 Intake Total 1360 1760 Output Total 2650 4700 Balance -1290 -2940 Result Diagrams: 05/24/18 07:02 05/25/18 05:02 Phys Exam - Physical Examination Constitutional: NAD HEENT: PERRLA, moist MMs, sclera anicteric, oral pharynx no lesions Neck: no nodes, no JVD, supple, full ROM Respiratory: no wheezing, no rales, no rhonchi, clear to auscultation bilateral Cardiovascular: RRR, no significant murmur, no rub Gastrointestinal: soft, non-tender, no distention, positive bowel sounds Musculoskeletal: no edema, pulses present Neurological: non-focal, normal sensation, moves all 4 limbs Psychiatric: normal affect, A&O x 3 Skin: no rash Dx/Plan (1) Systolic CHF Code(s): I50.20 - UNSPECIFIED SYSTOLIC (CONGESTIVE) HEART FAILURE Status: Acute Qualifiers: Heart failure chronicity: acute Qualified Code(s): I50.21 - Acute systolic (congestive) heart failure Comment: EF 15%, ? etiology, ? viral cardiomyopathy, ischemic, Lasix 40mg IV BID , cardiac cath today to further define anatomy and r/o ischemic etiology (2) Dyspnea Code(s): R06.00 - DYSPNEA, UNSPECIFIED Status: Acute Comment: Likely due to pulm edema in context of #1, see above (3) Acute respiratory failure with hypoxia Code(s): J96.01 - ACUTE RESPIRATORY FAILURE WITH HYPOXIA Status: Acute Comment: Secondary to #1, continue O2 supplementation, Diuresis (4) Cardiomyopathy Code(s): I42.9 - CARDIOMYOPATHY, UNSPECIFIED Status: Acute Comment: Cont ASA ,BB,FELICE-I.Add aldactone (5) HTN (hypertension) Code(s): I10 - ESSENTIAL (PRIMARY) HYPERTENSION Status: Chronic Qualifiers: Hypertension type: essential hypertension Qualified Code(s): I10 - Essential (primary) hypertension Comment: Start Metoprolol 25mg BID, serial monitoring, Hydralazine prn (6) Hypothyroid Code(s): E03.9 - HYPOTHYROIDISM, UNSPECIFIED Status: Acute - Plan respiratory therapy, DVT proph w/SCDs HD stable -: cardiac Cath [place] -: cont cardioprudent meds. -: cont levothyroxine -: will likely need LifeVest prior to DC * . Review of Systems - Review of Systems Constitutional: negative: fever, chills, sweats, weakness, malaise, other ENT: negative: Ear Pain, Ear Discharge, Nose Pain, Nose Discharge, Nose Congestion, Mouth Pain, Mouth Swelling, Throat Pain, Throat Swelling, Other Respiratory: negative: Cough, Dry, Shortness of Breath, Hemoptysis, SOB with Excertion, Pleuritic Pain, Sputum, Wheezing Cardiovascular: negative: chest pain, palpitations, orthopnea, paroxysmal nocturnal dyspnea, edema, light headedness, other Gastrointestinal: negative: Nausea, Vomiting, Abdominal Pain, Diarrhea, Constipation, Melena, Hematochezia, Other Genitourinary: negative: Dysuria, Frequency, Incontinence, Hematuria, Retention , Other Neurological: negative: Weakness, Numbness, Incoordination, Change in Speech, Confusion, Seizures, Other - Medications/Allergies Allergies/Adverse Reactions: Allergies Allergy/AdvReac Type Severity Reaction Status Date / Time codeine Allergy Verified 05/22/18 05:19 latex Allergy Verified 05/22/18 05:19 Medications: Current Medications Acetaminophen (Tylenol) 1,000 mg PO Q6H PRN PRN Reason: Mild Pain (1-3) Last Admin: 05/25/18 08:53 Dose: 1,000 mg Aspirin (Ecotrin) 81 mg PO DAILY [facility] Last Admin: 05/25/18 05:26 Dose: 81 mg Carvedilol (Coreg) 6.25 mg PO BID-[facility] Last Admin: 05/25/18 05:25 Dose: 6.25 mg Famotidine (Pepcid) 20 mg PO BID [facility] Last Admin: 05/25/18 05:26 Dose: 20 mg Furosemide (Lasix) 40 mg SLOW IVP DAILY [facility] Hydralazine HCl (Apresoline) 20 mg SLOW IVP Q4H PRN PRN Reason: SBP Greater Than 180 Sodium Chloride (Normal Saline 0.9%) 1,000 mls @ 50 mls/hr IV .Q20H [facility] Last Admin: 05/25/18 05:29 Dose: 1,000 mls Levothyroxine Sodium (Synthroid) 75 mcg PO 0600 [facility] Last Admin: 05/25/18 05:24 Dose: 75 mcg Lisinopril (Zestril) 2.5 mg PO BID [facility] Last Admin: 05/25/18 05:25 Dose: 2.5 mg Melatonin (Melatonin) 6 mg PO HS PRN PRN Reason: Insomnia Last Admin: 05/24/18 20:35 Dose: 6 mg Miscellaneous Information (Communication Order-Pharmacy) 0 each FS ONE [facility] Stop: 05/25/18 13:46 Ondansetron HCl (Zofran Odt) 4 mg PO Q6H PRN PRN Reason: Nausea/Vomiting Ondansetron HCl (Zofran) 4 mg IVP Q6H PRN PRN Reason: Nausea/Vomiting Potassium Chloride (K-Dur) 40 meq PO BID-[facility] Last Admin: 05/25/18 07:36 Dose: Not Given Sodium Chloride (Flush - Normal Saline) 10 ml IVF Q12HR [facility] Last Admin: 05/25/18 07:36 Dose: Not Given Sodium Chloride (Flush - Normal Saline) 10 ml IVF PRN PRN PRN Reason: Saline Flush Last Admin: 05/24/18 13:01 Dose: 10 ml Spironolactone (Aldactone) 12.5 mg PO QAM-[facility] Last Admin: 05/25/18 05:25 Dose: 12.5 mg Trazodone HCl (Desyrel) 50 mg PO HS PRN PRN Reason: Insomnia
[2018-05-25] MEDS ORDERED: Fentanyl 100 MCG/2 ML VIAL ONE (12:07)
[2018-05-25] MEDS ORDERED: Midazolam HCl 2 mg/2 ml Vial ONE (12:07)
[2018-05-25] MEDS ORDERED: Nitroglycerin 0.4 MG TAB (25 Tab Bottle) SL PRN (13:39)
[2018-05-25] MEDS ORDERED: Acetaminophen/Codeine 30-300mg Tablet PO PRN (13:39)
[2018-05-25] MEDS ORDERED: Sodium Chloride 0.9% 200 ML IV SCH (13:45)
[2018-05-25] MEDS ORDERED: Protamine Sulfate 50 MG/5 ML VIAL ONE (13:51)
[2018-05-25] MEDS: traMADol HCl 50 MG TAB PO PRN (14:00)
[2018-05-25] MEDS ORDERED: Iopamidol 370 76% 50 ML VIAL FS ONE (14:30)
[2018-05-25] MEDS ORDERED: Iopamidol 370 76% 100 ML VIAL ONE (14:30)
[2018-05-26] MEDS: traMADol HCl 50 MG TAB PO PRN (04:50)
[2018-05-26] MEDS: Levothyroxine Sodium 75 MCG TAB PO SCH (04:50)
[2018-05-26 07:52] LABS: Platelet Count 253 thou/uL (130-400)
[2018-05-26 08:15] LABS: Anion Gap 11 mmol/L (10-20); BUN (Urea Nitrogen) 19 mg/dL (7.0-18.7); Calc. Creatinine Clearance 253 mL/min (70-130); Calcium 8.8 mg/dL (7.8-10.44); Carbon Dioxide 30 mmol/L (22-29); Chloride 99 mmol/L (98-107); Estimated GFR-MDRD 85; Glucose 81 mg/dL (70-105); Potassium 4.1 mmol/L (3.5-5.1); Sodium 136 mmol/L (136-145)
[2018-05-26] MEDS: Spironolactone 25 MG TAB PO SCH (09:32)
[2018-05-26] MEDS: Carvedilol 6.25 MG TAB PO SCH ×2 (09:32→17:06)
[2018-05-26] MEDS: Potassium Chloride 20 MEQ TAB PO SCH ×2 (09:32→17:06)
[2018-05-26] MEDS: Famotidine 20 MG TAB PO SCH ×2 (09:33→21:08)
[2018-05-26] MEDS: Furosemide 40 MG/4 ML VIAL SLOW IVP SCH (09:33)
[2018-05-26] MEDS: Aspirin 81 mg Enteric Coated Tablet PO SCH (09:33)
--- NOTE | 2018-05-26 11:15 | PDOC.PN ---
- Subjective Encounter Start Date: 05/26/18 Encounter Start Time: 11:13 Subjective: feels well. still easily SOB.no CP -: Care disussed w at bedside - Objective Resuscitation Status - Order Detail: 05/21/18 19:13 Resuscitation Status Routine Resuscitation Status: FULL: Full Resuscitation MAR Reviewed: Yes Vital Signs & Weight: Vital Signs (12 hours) Temp Pulse Resp BP Pulse Ox 05/26/18 08:25 97.4 F L 71 18 168/109 H 98 05/26/18 03:55 97.6 F 74 16 124/88 96 Weight Admit Weight 353 lb 11.2 oz Weight 348 lb 2 oz I&O: 05/25/18 05/26/18 05/27/18 06:59 06:59 06:59 Intake Total 1760 1610 Output Total 4700 2100 Balance -2940 -490 Result Diagrams: 05/26/18 07:19 05/26/18 07:19 Phys Exam - Physical Examination Constitutional: NAD HEENT: PERRLA, moist MMs, sclera anicteric, oral pharynx no lesions Neck: no nodes, no JVD, supple, full ROM Respiratory: no wheezing, no rales, no rhonchi, clear to auscultation bilateral Cardiovascular: RRR, no significant murmur, no rub Gastrointestinal: soft, non-tender, no distention, positive bowel sounds Musculoskeletal: no edema, pulses present Neurological: non-focal, normal sensation, moves all 4 limbs Psychiatric: normal affect, A&O x 3 Skin: no rash Dx/Plan (1) Systolic CHF Code(s): I50.20 - UNSPECIFIED SYSTOLIC (CONGESTIVE) HEART FAILURE Status: Acute Qualifiers: Heart failure chronicity: acute Qualified Code(s): I50.21 - Acute systolic (congestive) heart failure Comment: EF 15%, ? etiology, ? viral cardiomyopathy, ischemic, Lasix 40mg IV BID , cardiac cath showed no CAD (2) Dyspnea Code(s): R06.00 - DYSPNEA, UNSPECIFIED Status: Acute Comment: Likely due to pulm edema in context of #1, see above (3) Acute respiratory failure with hypoxia Code(s): J96.01 - ACUTE RESPIRATORY FAILURE WITH HYPOXIA Status: Resolved Comment: Secondary to #1, continue O2 supplementation, Diuresis (4) Cardiomyopathy Code(s): I42.9 - CARDIOMYOPATHY, UNSPECIFIED Status: Acute Comment: Cont ASA ,BB,.Added aldactone and now Entresto (5) HTN (hypertension) Code(s): I10 - ESSENTIAL (PRIMARY) HYPERTENSION Status: Chronic Qualifiers: Hypertension type: essential hypertension Qualified Code(s): I10 - Essential (primary) hypertension Comment: Start Metoprolol 25mg BID, serial monitoring, Hydralazine prn (6) Hypothyroid Code(s): E03.9 - HYPOTHYROIDISM, UNSPECIFIED Status: Acute - Plan out of bed/ambulate, DVT proph w/SCDs contcardio prudentmeds. NO CADon Cath -: Lifevestw bashir DC home tomorrow -: educatedaboutDxand Rx. -: Will consult HF clinic and CRfor DC -: Hd stable.reduce lasix * . Review of Systems - Review of Systems Constitutional: weakness. negative: fever, chills, sweats, malaise, other ENT: negative: Ear Pain, Ear Discharge, Nose Pain, Nose Discharge, Nose Congestion, Mouth Pain, Mouth Swelling, Throat Pain, Throat Swelling, Other Respiratory: SOB with Excertion. negative: Cough, Dry, Shortness of Breath, Hemoptysis, Pleuritic Pain, Sputum, Wheezing Cardiovascular: negative: chest pain, palpitations, orthopnea, paroxysmal nocturnal dyspnea, edema, light headedness, other Gastrointestinal: negative: Nausea, Vomiting, Abdominal Pain, Diarrhea, Constipation, Melena, Hematochezia, Other Genitourinary: negative: Dysuria, Frequency, Incontinence, Hematuria, Retention , Other Neurological: negative: Weakness, Numbness, Incoordination, Change in Speech, Confusion, Seizures, Other - Medications/Allergies Allergies/Adverse Reactions: Allergies Allergy/AdvReac Type Severity Reaction Status Date / Time codeine Allergy Verified 05/22/18 05:19 latex Allergy Verified 05/22/18 05:19 Medications: Current Medications Acetaminophen (Tylenol) 1,000 mg PO Q6H PRN PRN Reason: Mild Pain (1-3) Last Admin: 05/25/18 08:53 Dose: 1,000 mg Aspirin (Ecotrin) 81 mg PO DAILY [facility] Last Admin: 05/26/18 09:33 Dose: 81 mg Carvedilol (Coreg) 6.25 mg PO BID-[facility] Last Admin: 05/26/18 09:32 Dose: 6.25 mg Famotidine (Pepcid) 20 mg PO BID [facility] Last Admin: 05/26/18 09:33 Dose: 20 mg Furosemide (Lasix) 40 mg SLOW IVP DAILY [facility] Last Admin: 05/26/18 09:33 Dose: 40 mg Hydralazine HCl (Apresoline) 20 mg SLOW IVP Q4H PRN PRN Reason: SBP Greater Than 180 Last Admin: 05/25/18 14:52 Dose: 20 mg Sodium Chloride (Normal Saline 0.9%) 200 mls @ 0 mls/hr IV ONE [facility] Stop: 05/26/18 13:46 Levothyroxine Sodium (Synthroid) 75 mcg PO 0600 [facility] Last Admin: 05/26/18 04:50 Dose: 75 mcg Melatonin (Melatonin) 6 mg PO HS PRN PRN Reason: Insomnia Last Admin: 05/24/18 20:35 Dose: 6 mg Nitroglycerin (Nitrostat) 0.4 mg SL Q5MIN PRN PRN Reason: Chest Pain Ondansetron HCl (Zofran Odt) 4 mg PO Q6H PRN PRN Reason: Nausea/Vomiting Last Admin: 05/25/18 20:15 Dose: 4 mg Ondansetron HCl (Zofran) 4 mg IVP Q6H PRN PRN Reason: Nausea/Vomiting Potassium Chloride (K-Dur) 40 meq PO BID-[facility] Last Admin: 05/26/18 09:32 Dose: 40 meq Sacubitril/Valsartan (Entresto 24.5 Mg-25.5 Mg Tablet) 1 tab PO BID [facility] Sodium Chloride (Flush - Normal Saline) 10 ml IVF Q12HR [facility] Last Admin: 05/26/18 09:33 Dose: 10 ml Sodium Chloride (Flush - Normal Saline) 10 ml IVF PRN PRN PRN Reason: Saline Flush Last Admin: 05/24/18 13:01 Dose: 10 ml Spironolactone (Aldactone) 50 mg PO QAM-[facility] Tramadol HCl (Ultram) 50 mg PO Q6H PRN PRN Reason: Moderate Pain (4-6) Last Admin: 05/26/18 04:50 Dose: 50 mg Trazodone HCl (Desyrel) 50 mg PO HS PRN PRN Reason: Insomnia Last Admin: 05/25/18 20:14 Dose: 50 mg
[2018-05-26] MEDS: Sacubitril 24.5 MG/Valsartan 25.5 MG TABLET PO SCH (21:08)
[2018-05-27] MEDS: traMADol HCl 50 MG TAB PO PRN ×2 (03:30→23:21)
[2018-05-27] MEDS: Levothyroxine Sodium 75 MCG TAB PO SCH (05:24)
[2018-05-27 05:46] LABS: Anion Gap 13 mmol/L (10-20); BUN (Urea Nitrogen) 20 mg/dL (7.0-18.7); Calc. Creatinine Clearance 253 mL/min (70-130); Calcium 8.7 mg/dL (7.8-10.44); Carbon Dioxide 27 mmol/L (22-29); Chloride 101 mmol/L (98-107); Estimated GFR-MDRD 85; Glucose 103 mg/dL (70-105); Potassium 4.1 mmol/L (3.5-5.1); Sodium 137 mmol/L (136-145)
[2018-05-27] MEDS: Furosemide 40 MG/4 ML VIAL SLOW IVP SCH (08:15)
[2018-05-27] MEDS: Potassium Chloride 20 MEQ TAB PO SCH ×2 (08:15→16:36)
[2018-05-27] MEDS: Sacubitril 24.5 MG/Valsartan 25.5 MG TABLET PO SCH ×2 (08:15→20:09)
[2018-05-27] MEDS: Famotidine 20 MG TAB PO SCH ×2 (08:16→20:09)
[2018-05-27] MEDS: Spironolactone 25 MG TAB PO SCH (08:16)
[2018-05-27] MEDS: Aspirin 81 mg Enteric Coated Tablet PO SCH (08:16)
[2018-05-27] MEDS: Carvedilol 6.25 MG TAB PO SCH ×3 (08:16→20:10)
--- NOTE | 2018-05-27 13:18 | PDOC.PN ---
- Subjective Encounter Start Date: 05/27/18 Encounter Start Time: 13:16 Subjective: was able to sleep last night.c/o some pain in groin at Cath site -: no DONALD -: still anxious but intolerant to Xanax - Objective Resuscitation Status - Order Detail: 05/21/18 19:13 Resuscitation Status Routine Resuscitation Status: FULL: Full Resuscitation MAR Reviewed: Yes Vital Signs & Weight: Vital Signs (12 hours) Temp Pulse Resp BP Pulse Ox 05/27/18 12:00 97.6 F 77 16 138/84 93 L 05/27/18 08:00 93 L 05/27/18 07:32 97.5 F L 73 16 155/104 H 93 L 05/27/18 04:00 98.4 F 70 18 140/99 H 93 L Weight Admit Weight 353 lb 11.2 oz Weight 342 lb 2 oz I&O: 05/26/18 05/27/18 05/28/18 06:59 06:59 06:59 Intake Total 1610 1550 Output Total 2100 2850 Balance -490 -1300 Result Diagrams: 05/26/18 07:19 05/27/18 04:55 Phys Exam - Physical Examination Constitutional: NAD HEENT: PERRLA, moist MMs, sclera anicteric, oral pharynx no lesions Neck: no nodes, no JVD, supple, full ROM Respiratory: no wheezing, no rales, no rhonchi Cardiovascular: RRR, no significant murmur Gastrointestinal: soft, non-tender, no distention, positive bowel sounds Musculoskeletal: no edema, pulses present Neurological: non-focal, normal sensation, moves all 4 limbs Psychiatric: normal affect, A&O x 3 Skin: no rash Dx/Plan (1) Systolic CHF Code(s): I50.20 - UNSPECIFIED SYSTOLIC (CONGESTIVE) HEART FAILURE Status: Acute Qualifiers: Heart failure chronicity: acute Qualified Code(s): I50.21 - Acute systolic (congestive) heart failure Comment: EF 15%, ? etiology, ? viral cardiomyopathy, ischemic, Lasix 40mg IV BID , cardiac cath showed no CAD (2) Dyspnea Code(s): R06.00 - DYSPNEA, UNSPECIFIED Status: Acute Comment: Likely due to pulm edema in context of #1, see above (3) Acute respiratory failure with hypoxia Code(s): J96.01 - ACUTE RESPIRATORY FAILURE WITH HYPOXIA Status: Resolved Comment: Secondary to #1, continue O2 supplementation, Diuresis (4) Cardiomyopathy Code(s): I42.9 - CARDIOMYOPATHY, UNSPECIFIED Status: Acute Comment: Cont ASA ,BB,.Added aldactone and now Entresto (5) HTN (hypertension) Code(s): I10 - ESSENTIAL (PRIMARY) HYPERTENSION Status: Chronic Qualifiers: Hypertension type: essential hypertension Qualified Code(s): I10 - Essential (primary) hypertension Comment: Start Metoprolol 25mg BID, serial monitoring, Hydralazine prn (6) Hypothyroid Code(s): E03.9 - HYPOTHYROIDISM, UNSPECIFIED Status: Acute - Plan DVT proph w/SCDs FRANCHESCA today to check if AV is bicuspid or not -: hemodynamically stable.will need LifeVest prior to DC -: cont levothyroxine.will need scrpit on DC -: cont Cardioprudent meds-on aldactone,BB & Entresto. -: cont lasix.good UO .lost 6 lbs in 24 hours.monitor * . Review of Systems - Review of Systems Constitutional: negative: fever, chills, sweats, weakness, malaise, other Respiratory: negative: Cough, Dry, Shortness of Breath, Hemoptysis, SOB with Excertion, Pleuritic Pain, Sputum, Wheezing Cardiovascular: negative: chest pain, palpitations, orthopnea, paroxysmal nocturnal dyspnea, edema, light headedness, other Gastrointestinal: negative: Nausea, Vomiting, Abdominal Pain, Diarrhea, Constipation, Melena, Hematochezia, Other Genitourinary: negative: Dysuria, Frequency, Incontinence, Hematuria, Retention , Other Musculoskeletal: negative: Neck Pain, Shoulder Pain, Arm Pain, Back Pain, Hand Pain, Leg Pain, Foot Pain, Other Neurological: negative: Weakness, Numbness, Incoordination, Change in Speech, Confusion, Seizures, Other - Medications/Allergies Allergies/Adverse Reactions: Allergies Allergy/AdvReac Type Severity Reaction Status Date / Time codeine Allergy Verified 05/22/18 05:19 latex Allergy Verified 05/22/18 05:19 Medications: Current Medications Acetaminophen (Tylenol) 1,000 mg PO Q6H PRN PRN Reason: Mild Pain (1-3) Last Admin: 05/25/18 08:53 Dose: 1,000 mg Aspirin (Ecotrin) 81 mg PO DAILY [facility] Last Admin: 05/27/18 08:16 Dose: 81 mg [facility] ([facility] Last Admin: 05/27/18 08:16 Dose: 6.25 mg Famotidine (Pepcid) 20 mg PO BID [facility] Last Admin: 05/27/18 08:16 Dose: 20 mg Furosemide (Lasix) 40 mg SLOW IVP DAILY [facility] Last Admin: 05/27/18 08:15 Dose: 40 mg Hydralazine HCl (Apresoline) 20 mg SLOW IVP Q4H PRN PRN Reason: SBP Greater Than 180 Last Admin: 05/25/18 14:52 Dose: 20 mg Levothyroxine Sodium (Synthroid) 75 mcg PO 0600 [facility] Last Admin: 05/27/18 05:24 Dose: 75 mcg Melatonin (Melatonin) 6 mg PO HS PRN PRN Reason: Insomnia Last Admin: 05/24/18 20:35 Dose: 6 mg Nitroglycerin (Nitrostat) 0.4 mg SL Q5MIN PRN PRN Reason: Chest Pain Ondansetron HCl (Zofran Odt) 4 mg PO Q6H PRN PRN Reason: Nausea/Vomiting Last Admin: 05/25/18 20:15 Dose: 4 mg Ondansetron HCl (Zofran) 4 mg IVP Q6H PRN PRN Reason: Nausea/Vomiting Potassium Chloride (K-Dur) [facility] Last Admin: 05/27/18 08:15 Dose: 40 meq Sacubitril/Valsartan (Entresto 24.5 Mg-25.5 Mg Tablet) 1 tab PO BID [facility] Last Admin: 05/27/18 08:15 Dose: 1 tab Sodium Chloride (Flush - Normal Saline) 10 ml IVF Q12HR [facility] Last Admin: 05/27/18 08:16 Dose: 10 ml Sodium Chloride (Flush - Normal Saline) 10 ml IVF PRN PRN PRN Reason: Saline Flush Last Admin: 05/24/18 13:01 Dose: 10 ml Spironolactone (Aldactone) 50 mg PO QAM-[facility] Last Admin: 05/27/18 08:16 Dose: 50 mg Tramadol HCl (Ultram) 50 mg PO Q6H PRN PRN Reason: Moderate Pain (4-6) Last Admin: 05/27/18 03:30 Dose: 50 mg Trazodone HCl (Desyrel) 50 mg PO HS PRN PRN Reason: Insomnia Last Admin: 05/25/18 20:14 Dose: 50 mg
[2018-05-27 14:45] VITALS: BMI 52.0
[2018-05-27] MEDS: Acetaminophen 500 MG TAB PO PRN (17:57)
[2018-05-28] MEDS: Levothyroxine Sodium 75 MCG TAB PO SCH (05:41)
[2018-05-28 06:05] LABS: Anion Gap 13 mmol/L (10-20); BUN (Urea Nitrogen) 18 mg/dL (7.0-18.7); Calc. Creatinine Clearance 232 mL/min (70-130); Calcium 9.1 mg/dL (7.8-10.44); Carbon Dioxide 29 mmol/L (22-29); Chloride 100 mmol/L (98-107); Estimated GFR-MDRD 79; Glucose 80 mg/dL (70-105); Potassium 4.3 mmol/L (3.5-5.1); Sodium 138 mmol/L (136-145)
[2018-05-28] MEDS: Aspirin 81 mg Enteric Coated Tablet PO SCH (07:53)
[2018-05-28] MEDS: Sacubitril 24.5 MG/Valsartan 25.5 MG TABLET PO SCH ×3 (07:54→20:54)
[2018-05-28] MEDS: Carvedilol 6.25 MG TAB PO SCH ×3 (07:54→20:55)
[2018-05-28] MEDS: Potassium Chloride 20 MEQ TAB PO SCH ×2 (07:54→16:28)
[2018-05-28] MEDS: Famotidine 20 MG TAB PO SCH ×2 (07:55→20:54)
--- NOTE | 2018-05-28 10:52 | PDOC.PN ---
- Subjective Encounter Start Date: 05/28/18 Encounter Start Time: 10:51 Ms. Love was seen today in follow-up of acute respiratory failure. She says she has had some dyspnea, otherwise ok. - Objective Resuscitation Status - Order Detail: 05/21/18 19:13 Resuscitation Status Routine Resuscitation Status: FULL: Full Resuscitation MAR Reviewed: Yes Vital Signs & Weight: Vital Signs (12 hours) Temp Pulse Resp BP BP Pulse Ox 05/28/18 08:00 96 05/28/18 07:26 97.7 F 73 18 153/98 H 96 05/28/18 04:00 97.8 F 70 20 125/92 H 96 05/28/18 00:00 97.9 F 72 20 156/114 H 95 Weight Admit Weight 353 lb 11.2 oz Weight 339 lb I&O: 05/27/18 05/28/18 05/29/18 06:59 06:59 06:59 Intake Total 1550 1560 Output Total 2850 2000 Balance -1300 -440 Result Diagrams: 05/26/18 07:19 05/28/18 04:13 Phys Exam - Physical Examination HEENT: PERRLA Respiratory: no wheezing, no rales, no rhonchi, clear to auscultation bilateral Cardiovascular: RRR, no significant murmur, no rub Gastrointestinal: soft, non-tender, no distention, positive bowel sounds Musculoskeletal: pulses present, edema present 1+ edema in the lower extremities Neurological: non-focal Dx/Plan (1) Acute on chronic systolic heart failure Code(s): I50.23 - ACUTE ON CHRONIC SYSTOLIC (CONGESTIVE) HEART FAILURE Status : Acute (2) Acute respiratory failure with hypoxia Code(s): J96.01 - ACUTE RESPIRATORY FAILURE WITH HYPOXIA Status: Resolved Comment: Secondary to #1, continue O2 supplementation, Diuresis (3) HTN (hypertension) Code(s): I10 - ESSENTIAL (PRIMARY) HYPERTENSION Status: Chronic Qualifiers: Hypertension type: essential hypertension Qualified Code(s): I10 - Essential (primary) hypertension Comment: Start Metoprolol 25mg BID, serial monitoring, Hydralazine prn (4) Hypothyroidism Code(s): E03.9 - HYPOTHYROIDISM, UNSPECIFIED Status: Chronic - Plan * Acute on chronic respiratory failure - resolved * Acute on chronic systolic heart failure- improved- She has a low EF- She may need Life Vest * HTN- blood pressure is a bit labile- increased dose of Carvediolol was noted * Hypothyroidism- she is clinically euthyroid.
[2018-05-28 11:05] LABS: Hemoglobin 11.7 g/dL (12.0-16.0); Platelet Count 278 thou/uL (130-400)
[2018-05-28] MEDS ORDERED: PROPOFOL 0 ML ONE (15:08)
[2018-05-28] MEDS ORDERED: Midazolam HCl 2 mg/2 ml Vial ONE (15:25)
[2018-05-28] MEDS ORDERED: Benzocaine 20% Spray 60 ML CAN ONE (15:27)
[2018-05-28] MEDS: Furosemide 40 MG/4 ML VIAL SLOW IVP SCH (16:27)
[2018-05-28] MEDS: Spironolactone 25 MG TAB PO SCH (16:27)
[2018-05-28] MEDS: traMADol HCl 50 MG TAB PO PRN (21:01)
--- NOTE | 2018-05-29 00:05 | ECHO ---
This is a 32-year-old woman with a cardiomyopathy and aortic valve disease. DESCRIPTION OF PROCEDURE: The patient was taken to the PACU. The patient was sedated with IV versed. A transesophageal probe was placed into the distal esophagus and stomach. Echocardiographic images were obtained. The trans esophageal probe was removed. FINDINGS: 1. Severe decrease in left ventricular systolic function. 2. The left ventricle is markedly dilated. 3. The aortic valve leaflets are thickened and appear to be bicuspid. 4. Mild to moderate aortic stenosis. 5. Mild to moderate aortic regurgitation. 6. Mild mitral regurgitation. 7. Mild tricuspid regurgitation. 8. Atherosclerotic debris in the descending aorta. IMPRESSION: Bicuspid aortic valve with mild to moderate aortic stenosis and mild to moderate aortic regurgitation .
[2018-05-29] MEDS: Levothyroxine Sodium 75 MCG TAB PO SCH (05:28)
[2018-05-29 06:56] LABS: Anion Gap 16 mmol/L (10-20); BUN (Urea Nitrogen) 13 mg/dL (7.0-18.7); Calc. Creatinine Clearance 241 mL/min (70-130); Calcium 9.3 mg/dL (7.8-10.44); Carbon Dioxide 27 mmol/L (22-29); Chloride 99 mmol/L (98-107); Estimated GFR-MDRD 82; Glucose 76 mg/dL (70-105); Potassium 4.6 mmol/L (3.5-5.1); Sodium 137 mmol/L (136-145)
[2018-05-29] MEDS: Famotidine 20 MG TAB PO SCH ×2 (08:11→20:25)
[2018-05-29] MEDS: Sacubitril 49 MG/Valsartan 51 MG TABLET PO SCH ×2 (08:11→20:25)
[2018-05-29] MEDS: Furosemide 40 MG TAB PO SCH ×2 (08:11→13:07)
[2018-05-29] MEDS: Potassium Chloride 20 MEQ TAB PO SCH ×2 (08:11→16:18)
[2018-05-29] MEDS: Aspirin 81 mg Enteric Coated Tablet PO SCH (08:12)
[2018-05-29] MEDS: Carvedilol 6.25 MG TAB PO SCH ×2 (08:12→16:18)
[2018-05-29] MEDS: Spironolactone 25 MG TAB PO SCH (08:12)
--- NOTE | 2018-05-29 09:49 | PDOC.PN ---
- Subjective Encounter Start Date: 05/29/18 Encounter Start Time: 09:47 Ms. Love was seen today in follow-up of CHF exacerbation. She says she is breathing better today. She notes feeling itchy over the past few days. she does not note a rash. She denies any lip or tongue swelling. - Objective Resuscitation Status - Order Detail: 05/21/18 19:13 Resuscitation Status Routine Resuscitation Status: FULL: Full Resuscitation MAR Reviewed: Yes Vital Signs & Weight: Vital Signs (12 hours) Temp Pulse Resp BP BP Pulse Ox 05/29/18 07:15 98.1 F 74 16 159/104 H 97 05/29/18 03:16 97.6 F 69 14 121/83 96 Weight Admit Weight 353 lb 11.2 oz Weight 331 lb 4 oz I&O: 05/28/18 05/29/18 05/30/18 06:59 06:59 06:59 Intake Total 1560 1280 Output Total 2000 5300 Balance -440 -4020 Result Diagrams: 05/28/18 10:33 05/29/18 05:58 Phys Exam - Physical Examination HEENT: PERRLA Respiratory: no wheezing, no rales, no rhonchi, clear to auscultation bilateral Cardiovascular: RRR, no significant murmur, no rub Gastrointestinal: soft, non-tender, no distention, positive bowel sounds Musculoskeletal: pulses present, edema present trace pedal edema bilaterally, no erythema or warmth Neurological: non-focal Dx/Plan (1) Acute on chronic systolic heart failure Code(s): I50.23 - ACUTE ON CHRONIC SYSTOLIC (CONGESTIVE) HEART FAILURE Status : Acute (2) Acute respiratory failure with hypoxia Code(s): J96.01 - ACUTE RESPIRATORY FAILURE WITH HYPOXIA Status: Resolved Comment: Secondary to #1, continue O2 supplementation, Diuresis (3) HTN (hypertension) Code(s): I10 - ESSENTIAL (PRIMARY) HYPERTENSION Status: Chronic Qualifiers: Hypertension type: essential hypertension Qualified Code(s): I10 - Essential (primary) hypertension Comment: Start Metoprolol 25mg BID, serial monitoring, Hydralazine prn (4) Hypothyroidism Code(s): E03.9 - HYPOTHYROIDISM, UNSPECIFIED Status: Chronic - Plan * Acute on chronic systolic heart failure- compensated- she is stable on Entresto, and Lasix has been changed to p.o. * HTN- blood pressure is a bit elevated but improved, with dose adjustments for CHF * FRANCHESCA results were noted and she has been found to have a bicuspid aortic valve * Awaiting Life vest * Itching- ? etiology- no evidence of Angioedema- will monitor, and give a trail of Atarax.
[2018-05-29] MEDS: hydrOXYzine 25 MG TAB PO PRN ×2 (11:34→20:25)
[2018-05-30] MEDS: Levothyroxine Sodium 75 MCG TAB PO SCH (05:26)
[2018-05-30 06:08] LABS: Anion Gap 13 mmol/L (10-20); BUN (Urea Nitrogen) 14 mg/dL (7.0-18.7); Calc. Creatinine Clearance 221 mL/min (70-130); Calcium 9.3 mg/dL (7.8-10.44); Carbon Dioxide 30 mmol/L (22-29); Chloride 100 mmol/L (98-107); Estimated GFR-MDRD 77; Glucose 106 mg/dL (70-105); Potassium 4.1 mmol/L (3.5-5.1); Sodium 139 mmol/L (136-145)
[2018-05-30] MEDS ORDERED: Carvedilol 6.25 MG TAB PO SCH (09:00)
[2018-05-30] MEDS ORDERED: Sacubitril 49 MG/Valsartan 51 MG TABLET PO SCH (09:00)
[2018-05-30] MEDS: Aspirin 81 mg Enteric Coated Tablet PO SCH (09:13)
[2018-05-30] MEDS: Spironolactone 25 MG TAB PO SCH (09:13)
[2018-05-30] MEDS: Furosemide 40 MG TAB PO SCH (09:14)
[2018-05-30] MEDS: Potassium Chloride 20 MEQ TAB PO SCH (09:14)
[2018-05-30] MEDS: Famotidine 20 MG TAB PO SCH (09:14)
--- NOTE | 2018-05-30 10:07 | PDOC.CTH ---
Cardiology Progress Note - Subjective No complaints. Patient has been discharged by primary team. - Objective Vital Signs Temp Pulse Resp BP BP Pulse Ox 05/30/18 08:46 97.9 F 80 17 135/73 95 05/30/18 03:10 99.3 F 78 15 139/93 H 94 L Admit Weight 353 lb 11.2 oz Weight 325 lb 3 oz 05/29/18 05/30/18 05/31/18 06:59 06:59 06:59 Intake Total 1280 2040 Output Total 5300 8800 Balance -4020 -6760 - Physical Examination General/Neuro: alert & oriented x3 Lungs: CTA Heart: RRR Abdomen: NT/ND, soft Extremities: other: (no edema) - Telemetry Telemetry Rhythm: SR; PVCs - Labs Result Diagrams: 05/28/18 10:33 05/30/18 04:32 Troponin/CKMB CK-MB (CK-2) 10.5 ng/mL (0-6.6) H* 05/21/18 18:34 Troponin I 14.503 ng/mL (< 0.028) H* 05/21/18 21:44 - Assessment/Plan 1. NICMO (EF 10-15%) 2. Bicuspid AV with mild and moderate AI 3. Morbid Obesity No changes to care. Discussed discharge plan with patient. She will f/u in our office and with CHF clinic. No questions at this time. LifeVest in place.
[2018-05-30] MEDS: hydrOXYzine 25 MG TAB PO PRN (10:37)
[2018-05-30 12:07] VITALS: BP 131/87; TEMP 98.7
--- NOTE | 2018-05-31 06:10 | DIS ---
DATE OF ADMISSION: 05/21/2018 DATE OF DISCHARGE: 05/30/2018 PRIMARY CARE PHYSICIAN: None. The patient has appointment at [facility] to establish care on June 04, 2018, at 11 a.m. CONDITION: At the time of discharge, stable and improved. DISCHARGE DISPOSITION: Home. DISCHARGE DIAGNOSES: 1. Severe non-ischemic cardiomyopathy. 2. Acute systolic congestive heart failure, improved. 3. Morbid obesity with BMI of over 49. 4. Acute respiratory failure with hypoxia secondary to acute congestive heart failure. 5. Hypertension. 6. Hypothyroidism. DISCHARGE MEDICATIONS: As follows; 1. Multivitamin daily. 2. Lactobacillus daily. 3. New medication of atarax 25 mg every 4 hours as needed for itching. 4. Aldactone 50 mg daily. 5. Entresto 49/51 mg one tablet p.o. t.i.d. 6. Potassium chloride 40 mEq daily. 7. Synthroid 75 mcg daily. 8. Lasix 40 mg p.o. b.i.d. 9. Carvedilol 12.5 mg p.o. t.i.d. 10. Aspirin 81 mg daily. PROCEDURES DONE IN THE HOSPITAL: 1. Pelvic ultrasound on 05/21/2018, for left lower quadrant pain which is unremarkable. 2. Pulmonary ventilation perfusion scan, which shows no evidence suggestive of pulmonary embolism. 3. Bilateral lower extremity ultrasound which is negative for any deep venous thrombosis. 4. Transthoracic echocardiogram which shows EF depressed at 15% to 20 % with moderately enlarged right ventricular cavity, with moderate mitral regurgitation, moderate aortic regurgitation, moderate aortic stenosis, and moderate to severe tricuspid regurgitation. 5. Cardiac catheterization, which does not show any coronary artery disease, but severely impaired left ventricular function with LVEDP estimated at 50 mmHg and possibly bicuspid aortic valve. 6. Transesophageal echocardiogram, which confirms the finding of bicuspid aortic valve and cardiomyopathy showing [id number] aortic stenosis and aortic regurgitation with mild mitral and tricuspid regurgitation and atherosclerotic debris in the descending aorta. IN-HOUSE CONSULTATION: Cardiology doctors, Philip and Ilda. HISTORY OF PRESENTING ILLNESS: Ms. Love is a 32-year-old female without any significant past medical history except for ovarian cyst, who presented to the ER with complaints of chest pain, abdominal pain, and shortness of breath over the last 1 week or so. In the emergency room, she was found to have elevated troponin of 18 as well as TSH high at 13.26 and BNP of over 3000. She was also tachycardic. She was treated with Lovenox, aspirin, Lasix, Synthroid, nitroglycerin paste, lisinopril, and IV labetalol in the emergency room. Her chest x-ray upon presentation, marked cardiomegaly with vascular prominence. A CT scan of the chest, abdomen, and pelvis was done, which showed mild ascites in the perihepatic region and calcified density anterior to the uterus and mild pericardial effusion. Pelvic ultrasound was ordered, which was rather unremarkable, but it was a limited study due to morbid habitus. She was admitted for further workup for acute dyspnea and workup for fluid retention. Please see admission history and physical for further details. HOSPITAL COURSE: The patient was ruled out with V/Q scan and lower extremity ultrasound for any DVT or pulmonary embolism. She underwent echocardiogram for further workup for her pulmonary edema, which was consistent with severely reduced ejection fraction. It was of unknown reason. She was seen by Cardiology, Dr. Palacios with regard to this and underwent cardiac catheterization. The catheterization was unremarkable. She was found to have possibly bicuspid aortic valve. For this, she underwent FRANCHESCA, which confirmed the finding of bicuspid aortic valve. With regard to her nonischemic cardiomyopathy, she was diuresed extensively and was started on cardiac-prudent medication including Entresto, aspirin, beta sandeep, and Aldactone. She was also started on levothyroxine given her severely high TSH consistent with hypothyroidism. I's and O's were monitored and she lost almost 28 pounds of water weight while in the hospital. She was fitted with a LifeVest as per the instruction of Cardiology and currently is in stable condition and cleared by Cardiology for discharge. She is educated about heart healthy diet and medication compliance and weight reduction as much as possible. She will follow up with Heart Failure Clinic as well as Cardiology, Dr. Gonsales, in the clinic. She was seen and examined this morning and is feeling very well and eager to go home. PHYSICAL EXAMINATION: This morning; VITAL SIGNS: Temperature 97.9, pulse of 80, respirations 17, saturating 95% on room air, blood pressure 135/73. CHEST: Clear to auscultation bilaterally. HEART: Rate rhythm is regular. EXTREMITIES: Trace pitting edema which has significantly improved since presentation. Discharge plan was discussed with the patient and her present in the room and they verbalized understanding. TOTAL TIME SPENT: 32 minutes. Job ID: [id number]
== END 2018-05-30 12:27 | disposition home or self-care (01) | DRG 286 ==
LOC: ERS 17:06 → 2NO 18:10
PROVIDERS: ADMIT Family Medicine; ATTEND Family Medicine
PROC: B24BZZZ Ultrasonography of Heart with Aorta (ICD-10-PCS; principal; 2018-05-22)
PROC: 4A023N8 Measurement of Cardiac Sampling and Pressure, Bilateral, Percutaneous Approach (ICD-10-PCS; 2018-05-25)
PROC: B2111ZZ Fluoroscopy of Multiple Coronary Arteries using Low Osmolar Contrast (ICD-10-PCS; 2018-05-25)
PROC: B2161ZZ Fluoroscopy of Right and Left Heart using Low Osmolar Contrast (ICD-10-PCS; 2018-05-25)
PROC: B24BZZ4 Ultrasonography of Heart with Aorta, Transesophageal (ICD-10-PCS; 2018-05-28)
DX: I11.0 Hypertensive heart disease with heart failure (principal); J96.01 Acute respiratory failure with hypoxia; Z68.42 Body mass index [BMI] 45.0-49.9, adult; R18.8 Other ascites; I50.23 Acute on chronic systolic (congestive) heart failure; I43 Cardiomyopathy in diseases classified elsewhere; E66.01 Morbid (severe) obesity due to excess calories; Z71.3 Dietary counseling and surveillance; E03.9 Hypothyroidism, unspecified; R93.9 Diagnostic imaging inconclusive due to excess body fat of patient; Z88.6 Allergy status to analgesic agent; Z91.040 Latex allergy status; Z87.891 Personal history of nicotine dependence; L29.9 Pruritus, unspecified; Z79.52 Long term (current) use of systemic steroids; E11.65 Type 2 diabetes mellitus with hyperglycemia
CPT/HCPCS: 36415; 76856; 78582; 80048; 80053; 80061; 82553; 82565; 83036; 83605; 83880; 84439; 85007; 85014; 85018; 85027; 85049; 85347; 93005; 93306; 93312; 93460; 93561; 93567; 93798; 93970; 96374; 99152; 99153; A9540; A9558; C1769; J0360; J1644; J1650; J1940; J2250; J2704; J2720; J3010; J3490; Q0162

== ENCOUNTER 2018-07-08 18:20 | Inpatient (IN) | payer SELFPAY ==
[2018-07-08 19:20] LABS: ALT (SGPT) 18 U/L (8-55); AST (SGOT) 27 U/L (5-34); Albumin 4.2 g/dL (3.5-5.0); Alkaline Phosphatase 51 U/L (40-150); Anion Gap 15 mmol/L (10-20); BUN (Urea Nitrogen) 29 mg/dL (7.0-18.7); Bilirubin, Total 0.5 mg/dL (0.2-1.2); Calc. Creatinine Clearance 0 mL/min (70-130); Carbon Dioxide 25 mmol/L (22-29); Chloride 104 mmol/L (98-107); Estimated GFR-MDRD 44; Glucose 98 mg/dL (70-105); Potassium 4.3 mmol/L (3.5-5.1); Protein, Total 8.2 g/dL (6.0-8.3); Sodium 140 mmol/L (136-145)
[2018-07-08 20:57] LABS: #Basophils 0.1 thou/uL (0.0-0.2); #Eosinphils 0.1 thou/uL (0.0-0.7); #Lymphocytes 1.8 thou/uL (1.20-3.40); #Monocytes 0.5 thou/uL (0.11-0.59); #Neutrophils 5.1 thou/uL (1.40-6.50); %Eosinophils 1.9 % (0.0-10.0); %Monocytes 6.6 % (0.0-10.0); %Neutrophils 66.5 % (42.0-75.0); Hemoglobin 13.7 g/dL (12.0-16.0); Mean Corpuscular HGB CONC 31.3 g/dL (32.0-36.0); Mean Corpuscular Hemoglobin 24.6 pg (27.0-31.0); Mean Corpuscular Volume 78.6 fL (78.0-98.0); Mean Platelet Volume 8.8 fL (7.4-10.4); Platelet Count 264 thou/uL (130-400); RBC Distribution Width 18.3 % (11.5-14.5); Red Blood Cell (RBC) Count 5.58 mill/uL (4.20-5.40); White Blood Cell (WBC) Count 7.7 thou/uL (4.8-10.8)
[2018-07-08] MEDS ORDERED: Morphine 4 MG/ML VIAL ONE (21:27)
[2018-07-08] MEDS ORDERED: Ondansetron PF 4 MG/2 ML Vial ONE (21:34)
[2018-07-08] MEDS ORDERED: Magnesium 2 GM/50 ML BAG (IN WATER) ONE (22:01)
[2018-07-08 22:51] LABS: CKMB 1.5 ng/mL (0-6.6)
[2018-07-08] MEDS ORDERED: Nitroglycerin 50 MG/250 ML BOT 250 ML IVPB SCH (23:45)
--- NOTE | 2018-07-08 23:45 | HP ---
PRIMARY CARE PHYSICIAN: The patient does not have a primary care physician. CHIEF COMPLAINT: Chest pain. HISTORY OF PRESENT ILLNESS: The patient is a 32-year-old female with a past medical history of severe nonischemic cardiomyopathy with EF of 15% to 20% with LifeVest , morbid obesity, acute systolic CHF, hypothyroidism, and hypertension, who presented to the emergency department for left-sided chest pain. The patient aware that this has been started since around 2:00 p.m. and started to get worse. The patient was transferred to the outside ER and was noted to have troponin of 4.54. Eventually, the patient was transferred to the [place] [facility] and found to have a troponin of 0.385 and her BNP was 455. The patient was started on the nitro drip, report that improvement in her chest pain. The patient reports compliance with her medication. SOCIAL HISTORY: The patient is . Denies any history of smoking. PAST SURGICAL HISTORY: Only . PAST MEDICAL HISTORY: 1. Hypertension. 2. CHF. 3. Hypothyroidism. FAMILY HISTORY: Mother has CHF. Allergies: Codeine, Latex CURRENT MEDICATIONS: 1. Aspirin 81 mg. 2. Torsemide 20 mg. 3. Coreg 3.125 mg b.i.d. 4. Entresto 49/51 mg twice daily. 5. Spironolactone 25 mg daily. 6. Levothyroxine 100 mcg daily. REVIEW OF SYSTEMS: GENERAL: No complaints. CONSTITUTIONAL: No complaints. HEART: Chest pain. No palpitations. LUNGS: No shortness of breath. No wheezing. ABDOMEN: Abdominal pain. No nausea, vomiting, or diarrhea. EXTREMITIES: Denies any edema. NEUROLOGIC: Denies any problems with sensation. : Denies any complaints at this point. SKIN: No rashes. PHYSICAL EXAMINATION: VITAL SIGNS: Blood pressure 131/83, pulse 66, respirations 18, O2 saturations 97% on room air. CONSTITUTIONAL: Alert and oriented, at this point headache. HEENT: Atraumatic. Eyes; PERRLA. Ear exam normal. No lymphadenopathy noted on the neck. Oral examination, no exudate. NECK: No lymphadenopathy. No JVD. RESPIRATIONS: Clear bilaterally. No wheezes, rales, or rhonchi. CARDIOVASCULAR: Heart rate regular and normal. Heart sounds normal. S1 and S2 intact. No rubs or gallops. Patch intact. ABDOMEN: Bowel sounds positive. Nontender. EXTREMITIES: No edema noted. NEUROLOGIC: Alert. Cranial nerve examination grossly intact. SKIN: No rashes noted. LYMPHADENOPATHY: No lymphs noted. IMAGING STUDIES: EKG reviewed, incomplete left bundle branch block, but no ST-elevation noted at this point. ASSESSMENT AND PLAN: We have a 32-year-old female with past medical history of systolic congestive heart failure with ischemic cardiomyopathy and hypertension , who was admitted for left-sided chest pain. 1a. Chest pain. The patient is on the nitro drip at this point. The recent troponins are trending down, up in the a.m. Cardiology consulted for AM, the patient sees Dr. Palacios. 1. Elevated BNP, Acute systolic CHF. Given history of systolic congestive heart failure, heart failure with preserved ejection fraction, we will also give Lasix 20 mg x1. We will continue home medications. Echo from May with an EF 15% to 20%. Cardiology consulted. 2. Hypothyroidism. Continue levothyroxine. Check TSH. 3. Hypertension. Continue home medication at this point and hydralazine p.r.n. 4. GI prophylaxis not indicated at this point. 5. DVT prophylaxis with Lovenox. 6. Code status, full code. 7. Medical power of trademark attorney: The patient wants her to be the medical power of trademark attorney at this point. Job ID: [id number] [facility]
[2018-07-09 00:06] VITALS: BMI 44.2
[2018-07-09 01:32] LABS: Critical Call Chem Troponin I RESULT DECREASING
[2018-07-09 01:50] LABS: CKMB 1.1 ng/mL (0-6.6)
[2018-07-09] MEDS ORDERED: Aspirin Chewable 81 MG TAB PO SCH (03:45)
[2018-07-09] MEDS ORDERED: Ondansetron PF 4 MG/2 ML Vial SLOW IVP PRN (03:46)
[2018-07-09] MEDS ORDERED: Furosemide 20 MG/2 ML VIAL SLOW IVP SCH (04:00)
[2018-07-09 06:38] LABS: Anion Gap 13 mmol/L (10-20); BUN (Urea Nitrogen) 28 mg/dL (7.0-18.7); Calc. Creatinine Clearance 115 mL/min (70-130); Calcium 9.4 mg/dL (7.8-10.44); Carbon Dioxide 26 mmol/L (22-29); Chloride 104 mmol/L (98-107); Cholesterol 216 mg/dl (< 200 Desired); Estimated GFR-MDRD 42; Glucose 97 mg/dL (70-105); HDL Cholesterol 27 mg/dL (>60 Neg Risk); LDL Cholesterol, Calculated 154 mg/dL; Potassium 3.7 mmol/L (3.5-5.1); Sodium 139 mmol/L (136-145); Triglycerides 177 mg/dL (Less than 150)
[2018-07-09 06:43] LABS: #Eosinphils 0.1 thou/uL (0.0-0.7); #Lymphocytes 2.1 thou/uL (1.20-3.40); #Monocytes 0.6 thou/uL (0.11-0.59); %Basophils 0.4 % (0.0-1.0); %Eosinophils 1.9 % (0.0-10.0); %Lymphocytes 30.9 % (21.0-51.0); %Monocytes 8.5 % (0.0-10.0); %Neutrophils 58.3 % (42.0-75.0); Hemoglobin 12.7 g/dL (12.0-16.0); Mean Corpuscular HGB CONC 31.2 g/dL (32.0-36.0); Mean Corpuscular Hemoglobin 24.5 pg (27.0-31.0); Mean Corpuscular Volume 78.6 fL (78.0-98.0); Mean Platelet Volume 8.4 fL (7.4-10.4); Platelet Count 240 thou/uL (130-400); RBC Distribution Width 18.2 % (11.5-14.5); Red Blood Cell (RBC) Count 5.19 mill/uL (4.20-5.40); White Blood Cell (WBC) Count 6.9 thou/uL (4.8-10.8)
[2018-07-09 07:05] LABS: CKMB 1.1 ng/mL (0-6.6)
[2018-07-09] MEDS ORDERED: hydrALAZINE 20 MG/ML VIAL SLOW IVP PRN (07:16)
[2018-07-09] MEDS: Enoxaparin Sodium 40 MG/0.4 ML SYRINGE SC SCH ×3 (08:46→21:20)
[2018-07-09] MEDS: Aspirin 81 mg Enteric Coated Tablet PO SCH (09:35)
[2018-07-09] MEDS: Carvedilol 25 MG TAB PO SCH ×2 (09:40→21:20)
[2018-07-09] MEDS: Sacubitril 49 MG/Valsartan 51 MG TABLET PO SCH ×2 (09:41→21:20)
[2018-07-09] MEDS: Torsemide 20 MG TAB PO SCH (09:41)
[2018-07-09] MEDS: traMADol HCl 50 MG TAB PO PRN ×2 (11:51→19:33)
[2018-07-09] MEDS ORDERED: Cyclobenzaprine 10 MG TAB PO SCH (13:45)
--- NOTE | 2018-07-09 14:58 | PDOC.PN ---
- Subjective Encounter Start Date: 07/09/18 Encounter Start Time: 14:56 Subjective: c/o of on and off sharp spasmodic pain in R side of chest -: no SOB.no edema. -: Off of Nitro drip and Out of CCU - Objective MAR Reviewed: Yes Vital Signs & Weight: Vital Signs (12 hours) Temp Pulse Resp BP Pulse Ox 07/09/18 12:38 98.7 F 68 18 130/84 96 07/09/18 12:00 97.8 F 07/09/18 08:00 97.7 F 95 07/09/18 04:00 97.9 F Weight Weight 291 lb 0.163 oz Most Recent Monitor Data Heart Rate from ECG 67 NIBP 126/75 NIBP BP-Mean 92 Respiration from ECG 20 SpO2 96 I&O: 07/08/18 07/09/18 07/10/18 06:59 06:59 06:59 Intake Total 11.6 460 Output Total 600 0 Balance -588.4 460 Result Diagrams: 07/09/18 06:02 07/09/18 06:02 Additional Labs: Laboratory Tests 05/21/18 05/22/18 07/08/18 21:44 06:01 16:35 Troponin I 14.503 H* 0.454 H* B-Natriuretic Peptide 2827.2 H 07/08/18 07/08/18 07/08/18 18:50 18:50 21:50 Troponin I 0.385 H* 0.414 H* B-Natriuretic Peptide 455.7 H 07/09/18 07/09/18 07/09/18 00:53 06:02 06:02 Troponin I 0.365 H* 0.372 H* B-Natriuretic Peptide 464.6 H Phys Exam - Physical Examination Constitutional: NAD HEENT: PERRLA, moist MMs, sclera anicteric, oral pharynx no lesions Neck: no nodes, no JVD, supple, full ROM Respiratory: no wheezing, no rales, no rhonchi, clear to auscultation bilateral Cardiovascular: RRR, no significant murmur, no rub TTP R side of chest and epigastrium & RUQ Gastrointestinal: soft, non-tender, no distention, positive bowel sounds Musculoskeletal: no edema, pulses present Neurological: non-focal, normal sensation, moves all 4 limbs Dx/Plan (1) Chest pain Code(s): R07.9 - CHEST PAIN, UNSPECIFIED Status: Acute (2) Demand ischemia Code(s): I24.8 - OTHER FORMS OF ACUTE ISCHEMIC HEART DISEASE Status: Acute (3) Chronic systolic heart failure, ACC/AHA stage C Code(s): I50.22 - CHRONIC SYSTOLIC (CONGESTIVE) HEART FAILURE Status: Chronic Comment: LifeVest in place. On Entresto,BB,diuretics.NL Cath 05/19 (4) Non-ischemic cardiomyopathy Code(s): I42.8 - OTHER CARDIOMYOPATHIES Status: Chronic (5) HTN (hypertension) Code(s): I10 - ESSENTIAL (PRIMARY) HYPERTENSION Status: Chronic Qualifiers: Hypertension type: essential hypertension Qualified Code(s): I10 - Essential (primary) hypertension Comment: Start Metoprolol 25mg BID, serial monitoring, Hydralazine prn (6) Hypothyroidism Code(s): E03.9 - HYPOTHYROIDISM, UNSPECIFIED Status: Chronic - Plan DVT proph w/SCDs Pain is reproducible on R chest near brreast w/o obvious deformity. -: will check Abd US as suspect biliary colic.add PPI.add Muscle relaxants -: avoid NSAIDS -: restart home meds. Pt had NL cath so not angins -: troponins trending down.suspect demand ischemia from stress * .Cardiology recs requested * HD stable. * may need to taper meds as BP on lower side. monitor * am labs Review of Systems - Review of Systems Cardiovascular: chest pain Other: anxiety and stress - Medications/Allergies Allergies/Adverse Reactions: Allergies Allergy/AdvReac Type Severity Reaction Status Date / Time codeine Allergy Rash Verified 07/09/18 00:01 latex Allergy Hives Verified 07/09/18 00:01 Medications: Current Medications Acetaminophen (Tylenol) 650 mg PO Q6H PRN PRN Reason: Mild Pain (1-3) Aspirin (Ecotrin) 81 mg PO DAILY [facility] Last Admin: 07/09/18 09:35 Dose: 81 mg Carvedilol (Coreg) 25 mg PO BID [facility] Last Admin: 07/09/18 09:40 Dose: Not Given Cyclobenzaprine HCl (Flexeril) 10 mg PO ONE [facility] Stop: 07/09/18 15:00 Cyclobenzaprine HCl (Flexeril) 10 mg PO TID PRN PRN Reason: Muscle Spasm Enoxaparin Sodium (Lovenox) 40 mg SC BID [facility] Last Admin: 07/09/18 09:35 Dose: 40 mg Hydralazine HCl (Apresoline) 5 mg SLOW IVP Q6H PRN PRN Reason: BP > 170/105 Levothyroxine Sodium (Synthroid) 75 mcg PO 0600 [facility] Ondansetron HCl (Zofran) 4 mg SLOW IVP Q6H PRN PRN Reason: Nausea/Vomiting Pantoprazole Sodium (Protonix) 40 mg PO DAILY [facility] Pantoprazole Sodium (Protonix) 40 mg PO ONE [facility] Stop: 07/09/18 15:00 Sacubitril/Valsartan (Entresto 49 Mg-51 Mg Tablet) 1 tab PO BID [facility] Last Admin: 07/09/18 09:41 Dose: Not Given Sodium Chloride (Flush - Normal Saline) 10 ml IVF Q12HR [facility] Last Admin: 07/09/18 09:41 Dose: Not Given Sodium Chloride (Flush - Normal Saline) 10 ml IVF PRN PRN PRN Reason: Saline Flush Spironolactone (Aldactone) 50 mg PO QAM-WM [facility] Torsemide (Demadex) 20 mg PO DAILY [facility] Last Admin: 07/09/18 09:41 Dose: Not Given Tramadol HCl (Ultram) 50 mg PO Q4H PRN PRN Reason: Moderate Pain (4-6) Last Admin: 07/09/18 11:51 Dose: 50 mg
--- NOTE | 2018-07-09 15:56 | ULT ---
SONOGRAM ABDOMEN COMPLETE: History Upper abdomen pain. FINDINGS: Small echogenic stones within the gallbladder lumen. No gallbladder wall thickening or pericholecyst ic fluid. The common duct is 0.6 cm. Liver unremarkable without focal mass or intrahepatic biliary dilatation. No free fluid. Small echogenic stone was present at the inferior pole of right kidney. No hydronephrosis. The left spleen, left kidney, and visualized portions of the abdominal aorta, IV C, and pancreas are unremarkable. IMPRESSION: 1. Cholelithiasis. No evidence of acute biliary obstruction. 2. Small nonobstructing right renal calculus. POS: [facility]
[2018-07-09] MEDS: Naproxen 500 MG TAB PO SCH (21:20)
[2018-07-10] MEDS: traMADol HCl 50 MG TAB PO PRN (05:44)
[2018-07-10] MEDS ORDERED: Levothyroxine Sodium 75 MCG TAB PO SCH (06:00)
--- NOTE | 2018-07-10 06:41 | CON ---
DATE OF CONSULTATION: HISTORY OF PRESENT ILLNESS: Earline Love is a 32-year-old white female whom I evaluated when she was in the hospital 1 month ago. She was admitted on May 21, 2018, and gave a history of approximately 1 month of increasing exertional dyspnea. This seemed to start after she had an upper respiratory infection. She had developed cough with that and the cough never seemed to resolve. She developed lower extremity edema, would have episodes of PND and would have to sleep in a chair. Ultimately, she came to the emergency room for complaints of mid abdominal pain, slightly worse on the left than on the right. She denies any chest, arm, neck, or jaw discomfort. She denies any history of rheumatic fever or history of having a heart murmur. She underwent pulmonary perfusion imaging which revealed low probability of pulmonary embolism. Echocardiogram was technically difficult with severe left ventricular dysfunction with ejection fraction of 15% to 20%, moderate mitral regurgitation, moderate aortic stenosis, moderate aortic regurgitation, mild to severe tricuspid regurgitation, and mild pulmonic regurgitation. She was diuresed and placed on increasing doses of carvedilol and Entresto. She underwent cardiac catheterization on May 25, 2018. This revealed normal coronary arteries, the mean aortic gradient was 16 mm with a valve area of 1.07 sq cm. Left ventriculogram was not performed due to left ventricular end-diastolic pressure of 50 mm. There is mild aortic insufficiency and a probable bicuspid valve. Overall, it was felt that she had a bicuspid aortic valve, but that her main problem was due to a nonischemic cardiomyopathy. LifeVest was arranged prior to discharge. She then states that her breathing has been better at home and she has had less cough. However, she is under a great deal of stress. Then yesterday at approximately noon, she developed substernal chest pressure that was continuous. The pain was not pleuritic or positional. She came to the hospital and was started on IV nitroglycerin in the CCU. This morning when I heard of the consult, I passed along that she had normal coronary arteries. She continues to have pain at this time, although it is less. PAST MEDICAL HISTORY: Hypertension, nonischemic cardiomyopathy, bicuspid aortic valve, morbid obesity, ovarian cyst. PAST SURGICAL HISTORY: in 2013. MEDICATIONS: 1. Carvedilol 25 mg b.i.d. 2. Aspirin 81 daily. 3. Atarax 25 mg q.4 hours p.r.n. 4. Levothyroxine 75 mcg daily. 5. Multivitamin daily. 6. Entresto 49/51 b.i.d. 7. Aldactone 50 q.a.m. 8. Torsemide 20 daily. ALLERGIES: CODEINE AND LATEX. SOCIAL HISTORY: She smoked 1 pack per day, but stopped 4 years ago. She does not drink. FAMILY HISTORY: Negative for coronary artery disease. REVIEW OF SYSTEMS: A 12-point review of systems is, otherwise, unremarkable. PHYSICAL EXAMINATION: VITAL SIGNS: Blood pressure 110/60, pulse of 66. HEENT: PERRL. NECK: Supple. CHEST: Clear. CARDIAC: S1 and S2 normal without any S3 or S4. There is a 1-2/6 systolic murmur in the aortic area. ABDOMEN: Obese. Normal bowel sounds. No tenderness. EXTREMITIES: No clubbing, cyanosis, or edema. NEUROLOGICAL: Grossly intact. SKIN: Warm and dry. MUSCULOSKELETAL: Exquisitely tender sternum which reproduced her pain. LABORATORY DATA: EKG reveals normal sinus rhythm, possible left atrial enlargement, incomplete left bundle-branch block. CBC is unremarkable. Sodium 139, potassium 3.7, chloride 104, carbon dioxide 26, BUN 13, creatinine 1.44, BUN 28. Troponin I 0.454. However, on last admission when she had normal coronary arteries, her troponin was 18.121. Cholesterol 216, triglycerides 177, HDL 27, LDL 54. TSH is high at 8.3364. IMPRESSION: 1. Chest wall pain with palpable tenderness. 2. Normal coronary arteries. 3. Severe dilated nonischemic cardiomyopathy with ejection fraction of 20% to 25 %. 4. Bicuspid aortic valve with moderate aortic stenosis. 5. Obesity. 6. Diet-controlled diabetes. 7. Former smoker. 8. Hypertension. PLAN: The patient's BUN and creatinine are increasing and furosemide has been discontinued. Her renal function needs to be watched closely and Entresto may need to be stopped. Her current pain is chest wall in nature with palpable chest wall tenderness and no further cardiac evaluation is warranted. Job ID: [id number] MTDD
[2018-07-10 06:53] LABS: CKMB 0.9 ng/mL (0-6.6)
[2018-07-10] MEDS: Cyclobenzaprine 10 MG TAB PO PRN ×2 (07:38→18:36)
[2018-07-10 07:59] LABS: Anion Gap 12 mmol/L (10-20); BUN (Urea Nitrogen) 29 mg/dL (7.0-18.7); Calc. Creatinine Clearance 115 mL/min (70-130); Calcium 9.3 mg/dL (7.8-10.44); Carbon Dioxide 26 mmol/L (22-29); Chloride 103 mmol/L (98-107); Estimated GFR-MDRD 42; Glucose 83 mg/dL (70-105); Potassium 3.7 mmol/L (3.5-5.1); Sodium 137 mmol/L (136-145)
[2018-07-10] MEDS ORDERED: Spironolactone 25 MG TAB PO SCH (08:00)
[2018-07-10] MEDS: Carvedilol 25 MG TAB PO SCH ×2 (08:51→21:18)
[2018-07-10] MEDS: Aspirin 81 mg Enteric Coated Tablet PO SCH (08:51)
[2018-07-10] MEDS: Torsemide 20 MG TAB PO SCH (08:52)
[2018-07-10] MEDS: Enoxaparin Sodium 40 MG/0.4 ML SYRINGE SC SCH ×2 (08:52→21:18)
[2018-07-10] MEDS: Naproxen 500 MG TAB PO SCH ×2 (08:52→21:18)
[2018-07-10] MEDS: Pantoprazole 40 MG GRANULES PACKET PO SCH (08:53)
[2018-07-10] MEDS: Sacubitril 49 MG/Valsartan 51 MG TABLET PO SCH (08:57)
--- NOTE | 2018-07-10 11:47 | PDOC.PN ---
- Subjective Encounter Start Date: 07/10/18 Encounter Start Time: 08:20 Subjective: still has left and retrosternal chest pain -: no sob or palp -: no fever or cough, is amb in room - Objective MAR Reviewed: Yes Vital Signs & Weight: Vital Signs (12 hours) Temp Pulse Resp BP Pulse Ox 07/10/18 11:03 98.6 F 74 17 98/53 L 92 L 07/10/18 07:29 97.8 F 60 18 117/77 95 07/10/18 03:24 98.1 F 65 19 97/54 L 96 Weight Weight 291 lb 0.163 oz Most Recent Monitor Data Heart Rate from ECG 67 NIBP 126/75 NIBP BP-Mean 92 Respiration from ECG 20 SpO2 96 I&O: 07/09/18 07/10/18 07/11/18 06:59 06:59 06:59 Intake Total 11.6 780 Output Total 600 0 Balance -588.4 780 Result Diagrams: 07/09/18 06:02 07/10/18 07:25 Phys Exam - Physical Examination HEENT: PERRLA, moist MMs Neck: no JVD, supple Respiratory: no wheezing, no rales Cardiovascular: RRR, no significant murmur Gastrointestinal: soft, non-tender, positive bowel sounds Musculoskeletal: no edema, pulses present Neurological: non-focal, moves all 4 limbs Psychiatric: normal affect, A&O x 3 Dx/Plan (1) Chest pain Code(s): R07.9 - CHEST PAIN, UNSPECIFIED Status: Acute Qualifiers: Chest pain type: unspecified Qualified Code(s): R07.9 - Chest pain, unspecified (2) Morbid obesity with BMI of 40.0-44.9, adult Code(s): E66.01 - MORBID (SEVERE) OBESITY DUE TO EXCESS CALORIES; Z68.41 - BODY MASS INDEX (BMI) 40.0-44.9, ADULT Status: Chronic (3) Demand ischemia Code(s): I24.8 - OTHER FORMS OF ACUTE ISCHEMIC HEART DISEASE Status: Acute (4) Chronic systolic heart failure, ACC/AHA stage C Code(s): I50.22 - CHRONIC SYSTOLIC (CONGESTIVE) HEART FAILURE Status: Chronic Comment: LifeVest in place. On Entresto,BB,diuretics.NL Cath 05/19 (5) Non-ischemic cardiomyopathy Code(s): I42.8 - OTHER CARDIOMYOPATHIES Status: Chronic (6) HTN (hypertension) Code(s): I10 - ESSENTIAL (PRIMARY) HYPERTENSION Status: Chronic Qualifiers: Hypertension type: essential hypertension Qualified Code(s): I10 - Essential (primary) hypertension (7) Hypothyroidism Code(s): E03.9 - HYPOTHYROIDISM, UNSPECIFIED Status: Chronic Qualifiers: Hypothyroidism type: unspecified Qualified Code(s): E03.9 - Hypothyroidism , unspecified - Plan may dc home if ok with cardiology -: is on entresto, coreg, spironolactone, demadex and asp -: may dc demadex in view of other meds plus mild baylee/ckd -: to amb as tolerated -: trial of prednisone if needed, is on naprosyn bid, watch for renal function * . Review of Systems - Medications/Allergies Allergies/Adverse Reactions: Allergies Allergy/AdvReac Type Severity Reaction Status Date / Time codeine Allergy Rash Verified 07/09/18 00:01 latex Allergy Hives Verified 07/09/18 00:01 Medications: Current Medications Acetaminophen (Tylenol) 650 mg PO Q6H PRN PRN Reason: Mild Pain (1-3) Aspirin (Ecotrin) 81 mg PO DAILY [facility] Last Admin: 07/10/18 08:51 Dose: 81 mg Carvedilol (Coreg) 25 mg PO BID [facility] Last Admin: 07/10/18 08:51 Dose: 25 mg Cyclobenzaprine HCl (Flexeril) 10 mg PO TID PRN PRN Reason: Muscle Spasm Last Admin: 07/10/18 07:38 Dose: 10 mg Enoxaparin Sodium (Lovenox) 40 mg SC BID [facility] Last Admin: 07/10/18 08:52 Dose: 40 mg Hydralazine HCl (Apresoline) 5 mg SLOW IVP Q6H PRN PRN Reason: BP > 170/105 Levothyroxine Sodium (Synthroid) 100 mcg PO 0600 [facility] Naproxen (Naprosyn) 500 mg PO BID [facility] Last Admin: 07/10/18 08:52 Dose: 500 mg Ondansetron HCl (Zofran) 4 mg SLOW IVP Q6H PRN PRN Reason: Nausea/Vomiting Pantoprazole Sodium (Protonix) 40 mg PO DAILY [facility] Last Admin: 07/10/18 08:53 Dose: 40 mg Sodium Chloride (Flush - Normal Saline) 10 ml IVF Q12HR [facility] Last Admin: 07/10/18 08:52 Dose: 10 ml Sodium Chloride (Flush - Normal Saline) 10 ml IVF PRN PRN PRN Reason: Saline Flush
[2018-07-10] MEDS: Acetaminophen 325 MG TAB PO PRN ×2 (11:54→18:36)
[2018-07-11] MEDS ORDERED: Levothyroxine Sodium 100 MCG TAB PO SCH (06:00)
[2018-07-11] MEDS ORDERED: Morphine 2 MG/ML SYRINGE SLOW IVP SCH (08:15)
[2018-07-11] MEDS: Aspirin 81 mg Enteric Coated Tablet PO SCH (09:15)
[2018-07-11] MEDS: Pantoprazole 40 MG GRANULES PACKET PO SCH (09:15)
[2018-07-11] MEDS: Naproxen 500 MG TAB PO SCH (09:15)
[2018-07-11 09:30] LABS: Anion Gap 14 mmol/L (10-20); BUN (Urea Nitrogen) 33 mg/dL (7.0-18.7); Calc. Creatinine Clearance 119 mL/min (70-130); Calcium 9.5 mg/dL (7.8-10.44); Carbon Dioxide 26 mmol/L (22-29); Chloride 104 mmol/L (98-107); Estimated GFR-MDRD 43; Glucose 82 mg/dL (70-105); Sodium 140 mmol/L (136-145)
[2018-07-11] MEDS: Carvedilol 25 MG TAB PO SCH (09:32)
[2018-07-11] MEDS: Enoxaparin Sodium 40 MG/0.4 ML SYRINGE SC SCH (09:32)
[2018-07-11 11:35] VITALS: BP 124/85; TEMP 97.5
--- NOTE | 2018-07-11 12:16 | PDOC.PN ---
- Subjective Encounter Start Date: 07/11/18 Encounter Start Time: 08:45 Subjective: no new complaints -: at bedside -: is eating well and ambulating in room - Objective MAR Reviewed: Yes Vital Signs & Weight: Vital Signs (12 hours) Temp Pulse Resp BP Pulse Ox 07/11/18 11:33 97.5 F L 63 18 124/85 97 07/11/18 07:43 97.4 F L 56 L 18 97/56 L 98 07/11/18 07:40 98 07/11/18 04:00 98.1 F 57 L 16 91/55 L 96 Weight Weight 293 lb 4.8 oz Most Recent Monitor Data Heart Rate from ECG 67 NIBP 126/75 NIBP BP-Mean 92 Respiration from ECG 20 SpO2 96 I&O: 07/10/18 07/11/18 07/12/18 06:59 06:59 06:59 Intake Total 780 840 Output Total 0 Balance 780 840 Result Diagrams: 07/09/18 06:02 07/11/18 08:40 Phys Exam - Physical Examination HEENT: PERRLA, moist MMs Neck: no JVD, supple Respiratory: no wheezing, no rales Cardiovascular: RRR, no significant murmur Gastrointestinal: soft, non-tender, positive bowel sounds Musculoskeletal: no edema, pulses present Neurological: non-focal, moves all 4 limbs Psychiatric: normal affect, A&O x 3 Dx/Plan (1) Chest pain Code(s): R07.9 - CHEST PAIN, UNSPECIFIED Status: Acute Qualifiers: Chest pain type: unspecified Qualified Code(s): R07.9 - Chest pain, unspecified (2) Morbid obesity with BMI of 40.0-44.9, adult Code(s): E66.01 - MORBID (SEVERE) OBESITY DUE TO EXCESS CALORIES; Z68.41 - BODY MASS INDEX (BMI) 40.0-44.9, ADULT Status: Chronic (3) Demand ischemia Code(s): I24.8 - OTHER FORMS OF ACUTE ISCHEMIC HEART DISEASE Status: Acute (4) Chronic systolic heart failure, ACC/AHA stage C Code(s): I50.22 - CHRONIC SYSTOLIC (CONGESTIVE) HEART FAILURE Status: Chronic Comment: LifeVest in place. NL Cath 05/19 (5) Non-ischemic cardiomyopathy Code(s): I42.8 - OTHER CARDIOMYOPATHIES Status: Chronic (6) HTN (hypertension) Code(s): I10 - ESSENTIAL (PRIMARY) HYPERTENSION Status: Chronic Qualifiers: Hypertension type: essential hypertension Qualified Code(s): I10 - Essential (primary) hypertension (7) Hypothyroidism Code(s): E03.9 - HYPOTHYROIDISM, UNSPECIFIED Status: Chronic Qualifiers: Hypothyroidism type: unspecified Qualified Code(s): E03.9 - Hypothyroidism , unspecified - Plan hemostable, gave updates to pt and , dc pt home -: meds reconciled, is off entresto and spironolactone due to baylee -: ultram for pain -: d/w , she will f/u at heart failure clinic on -: decision to start acei/arbs on if renal function is at baseline * .
--- NOTE | 2018-07-12 16:28 | DIS ---
DATE OF ADMISSION: 07/08/2018 DATE OF DISCHARGE: 07/11/2018 DISCHARGE DISPOSITION: To home. PRIMARY DISCHARGE DIAGNOSIS: Chest pain, which is muscular, which is noncardiac, demand ischemia. SECONDARY DISCHARGE DIAGNOSES: Nonischemic cardiomyopathy, history of congestive heart failure, morbid obesity, hypertension, and hypothyroidism. PROCEDURES DONE DURING HOSPITALIZATION: Abdominal ultrasound done showed cholelithiasis with no evidence of biliary obstruction, small nonobstructing right renal calculus seen. Hemoglobin and hematocrit 12 and 40, platelet count 240, MCV is 78. Troponin I was indeterminate, peaking up to 0.3. CK-MB 1.1. BNP 464. TSH 8.3. Total cholesterol 216, triglycerides 177, LDL 154, HDL 27. Albumin is 4.2. Creatinine was 1.0 on the day of discharge with BUN of 33. DISCHARGE MEDICATIONS: 1. Coreg 25 mg twice daily. 2. Multivitamin 1 tablet once daily. 3. Aspirin 81 mg p.o. daily. 4. Levothyroxine 100 mcg p.o. daily. 5. Ultram p.r.n. for pain. ALLERGIES: ALLERGIC TO CODEINE AND LATEX. INPATIENT CONSULT: Dr. Palacios for Cardiology. DISCHARGE PLAN: The patient to follow up in Heart Failure Clinic in 1 week and primary care physician in 1 week. BRIEF COURSE DURING HOSPITALIZATION: The patient initially came to ER with complaints of left-sided and retrosternal chest pain. She had known history of nonischemic cardiomyopathy with EF of 15% to 20% and was on a LifeVest as well. The patient has had recent cardiac catheterization done, which showed no flow-limiting disease. She has had indeterminate cardiac enzymes, likely demand ischemia. The patient was placed on NSAIDs with mild resolution of her chest discomfort. She was closely monitored on telemetry with no arrhythmias. She is still wearing her LifeVest. Due to increasing BUN and creatinine, the patient's Entresto and spironolactone have been discontinued. She will be a candidate for FELICE or ARB in a week from now when she follows up at [facility] Failure Clinic. She was evaluated by Dr. Palacios for Cardiology as well. Prior to discharge, she is ambulating and eating well. Please see a [id number] documentation for the day of discharge on [facility]. Job ID: [id number]
--- NOTE | 2018-07-15 12:45 | EKG ---
Test Reason : RASHID Blood Pressure : / mmHG Vent. Rate : 053 BPM Atrial Rate : 053 BPM P-R Int : 172 ms QRS Dur : 114 ms QT Int : 486 ms P-R-T Axes : 063 -34 116 degrees QTc Int : 456 ms Sinus bradycardia Left axis deviation Incomplete left bundle branch block T wave abnormality, consider lateral ischemia Abnormal ECG When compared with ECG of 08-JUL-2018 20:43, (Unconfirmed) Nonspecific T wave abnormality now evident in Anterior leads Confirmed by DR. Laina DELEON ([id number]) on 07/15/2018 12:45:16 PM Referred By: Confirmed By:DR. Laina DELEON
== END 2018-07-11 12:11 | disposition home or self-care (01) | DRG 311 ==
LOC: ERS 18:20 → CCU 21:04 → 2NO 23:27
PROVIDERS: ADMIT Family Medicine; ATTEND Family Medicine
DX: I24.8 Other forms of acute ischemic heart disease (principal); I42.8 Other cardiomyopathies; Z68.41 Body mass index [BMI] 40.0-44.9, adult; I50.22 Chronic systolic (congestive) heart failure; E66.01 Morbid (severe) obesity due to excess calories; E03.9 Hypothyroidism, unspecified; I11.0 Hypertensive heart disease with heart failure; E11.9 Type 2 diabetes mellitus without complications; I35.0 Nonrheumatic aortic (valve) stenosis; Z88.5 Allergy status to narcotic agent; Z91.040 Latex allergy status; Z79.82 Long term (current) use of aspirin; Z79.899 Other long term (current) drug therapy; Z87.891 Personal history of nicotine dependence
CPT/HCPCS: 36415; 76700; 80048; 80061; 82553; 83880; 84443; 84484; 85025; 93005; 93010; 96365; 96366; 96375; J1650; J1940; J2270; J2405; J3475